=== PATIENT | male | born 1965 | race Caucasian/White ===

== ENCOUNTER 2018-12-26 14:21 | Inpatient (IN) | payer MEDICAID ==
[~2018-12-26] VITALS: Ht 188 cm; Wt 123.8 kg
[2018-12-26] MEDS ORDERED: Isovue-300 100ml vial INJ PRN (14:45)
[2018-12-26 14:46] LABS: BASOPHILS % (AUTO) 0.8 % (0.0-2.0); EOSINOPHILS % (AUTO) 1.7 % (0.0-3.0); HEMATOCRIT 36.4 % (42.0-52.0); HEMOGLOBIN 12.7 G/DL (14.2-18.0); LYMPHOCYTES % (AUTO) 22.5 % (20.0-45.0); MEAN CORPUSCULAR VOLUME 93 FL (80-99); MONOCYTES % (AUTO) 8.9 % (1.0-10.0); NEUTROPHILS % (AUTO) 66.1 % (45.0-75.0); PLATELET COUNT 122 K/UL (150-450); RED BLOOD COUNT 3.92 M/UL (4.70-6.10); RED CELL DISTRIBUTION WIDTH 12.2 % (11.6-14.8); WHITE BLOOD COUNT 7.4 K/UL (4.8-10.8)
[2018-12-26 15:01] LABS: ANION GAP 11 mmol/L (5-15); BLOOD UREA NITROGEN 8 mg/dL (7-18); CARBON DIOXIDE 22 MMOL/L (21-32); CHLORIDE 96 MMOL/L (98-107); CREATININE 0.7 MG/DL (0.55-1.30); POTASSIUM 4.8 MMOL/L (3.5-5.1); SODIUM 128 MMOL/L (136-145)
[2018-12-26 15:03] LABS: INR 0.9 (0.9-1.1)
[2018-12-26 15:07] LABS: ALANINE AMINOTRANSFERASE 124 U/L (12-78); ALBUMIN 3.7 G/DL (3.4-5.0); ALBUMIN/GLOBULIN RATIO 1.2 (1.0-2.7); ALKALINE PHOSPHATASE 72 U/L (46-116); ASPARTATE AMINO TRANSFERASE 98 U/L (15-37); BILIRUBIN,TOTAL 0.8 MG/DL (0.2-1.0)
[2018-12-26 15:17] VITALS: BP 119/69
[2018-12-26 15:46] LABS: APPEARANCE,URINE CLEAR; BILIRUBIN, URINE NEGATIVE (NEGATIVE); COLOR,URINE PALE YELLOW; GLUCOSE, URINE (UA) NEGATIVE (NEGATIVE); KETONES,URINE NEGATIVE (NEGATIVE); LEUKOCYTE ESTERASE ,URINE NEGATIVE (NEGATIVE); NITRITE,URINE NEGATIVE (NEGATIVE); PH,URINE 6 (4.5-8.0); PROTEIN,URINE NEGATIVE (NEGATIVE); UROBILINOGEN,URINE NORMAL MG/DL (0.0-1.0)
[2018-12-26] MEDS ORDERED: PLAVIX75 MG ORAL (15:58)
[2018-12-26] MEDS ORDERED: ROXICODONE15 MG ORAL (15:58)
[2018-12-26] MEDS ORDERED: LISINOPRIL5 MG ORAL (15:58)
[2018-12-26] MEDS ORDERED: GABAPENTIN100 MG ORAL (15:58)
--- NOTE | 2018-12-26 16:07 | Emergency Room Report ---
History of Present Illness General Chief Complaint: Chest Pain Source: EMS Present Illness HPI 53-year-old male presents ED for evaluation. Br[place] in by EMS from [place] complaining of chest pain. Upon arrival patient is lethargic and not answering questions. Unable to provide any additional history at this time. No reported distress upon arrival. Patient has bruising to abdomen. No reported fevers chills. No other aggravating relieving factors. No other associated symptoms Allergies: Coded Allergies: No Known Allergies (Unverified , 12/26/18) Patient History Past Medical History: DM, HTN, CVA/TIA Past Surgical History: none Pertinent Family History: none Social History: Denies: smoking, alcohol use, drug use Immunizations: UTD Reviewed Nursing Documentation: PMH: Agreed; PSxH: Agreed Nursing Documentation-PMH Hx Hypertension: Yes Hx Diabetes: Yes Hx Cerebrovascular Accident: Yes Review of Systems All Other Systems: negative except mentioned in HPI Physical Exam Vital Signs Date Time Temp Pulse Resp B/P (MAP) Pulse Ox O2 Delivery O2 Flow Rate FiO2 12/26/18 14:15 98.1 89 16 117/70 (86) 96 Room Air 12/26/18 15:17 3.0 Sp02 EP Interpretation: reviewed, normal General Appearance: no apparent distress, GCS 15, non-toxic, lethargic Head: normocephalic Eyes: bilateral eye normal inspection, bilateral eye PERRL ENT: normal ENT inspection Neck: normal inspection Respiratory: chest non-tender, lungs clear, normal breath sounds, speaking full sentences Cardiovascular #1: regular rate, rhythm, no edema Gastrointestinal: normal bowel sounds, non tender, soft, non-distended, no guarding, no rebound, other - bruising to abdomen Rectal: deferred Genitourinary: no CVA tenderness Musculoskeletal: normal inspection, swelling - swelling bialteral lower extremities, tender - ulceration/induration R foot, bilateral LEs Neurologic: other - lethargic Psychiatric: other - lethargic Skin: other - see nursing notes for skin Lymphatic: normal inspection Medical Decision Making Diagnostic Impression: Primary Impression: Alcohol intoxication Qualified Codes: F10.929 - Alcohol use, unspecified with intoxication, unspecified Additional Impressions: Substance abuse Cellulitis of foot ER Course Hospital Course 53-year-old male presents ED with altered mental status, swelling to bilateral lower extremities Differential diagnoses include: Cellulitis, DVT, abscess, rash. Clinical course Patient placed on stretcher. After initial history and physical I ordered labs , UA, IVFs, doppler US of LLE labs reviewed - no leukocytosis, Hb/Hct stable, no electrolyte abnormalities, ETOH elevated, UTox + THC +BZs Doppler US - no evidence of DVT Chest x-rayno acute process CT abdomen/pelvis no acute process Foot x-ray no signs of osteomyelitis Is now more alert oriented. Denies any chest pain on arrival antibiotics given. Case discussed with Dr Ashford and he agreed to accept the patient to his service for further care and support Diagnosis - alcohol intoixacation, substance abuse, cellulitis of foot Patient admitted to floor in serious condition Labs Test 12/26/18 14:30 12/26/18 14:45 12/26/18 15:25 White Blood Count 7.4 K/UL (4.8-10.8) Red Blood Count 3.92 M/UL (4.70-6.10) Hemoglobin 12.7 G/DL (14.2-18.0) Hematocrit 36.4 % (42.0-52.0) Mean Corpuscular Volume 93 FL (80-99) Mean Corpuscular Hemoglobin 32.5 PG (27.0-31.0) Mean Corpuscular Hemoglobin Concent 35.0 G/DL (32.0-36.0) Red Cell Distribution Width 12.2 % (11.6-14.8) Platelet Count 122 K/UL (150-450) Mean Platelet Volume 6.9 FL (6.5-10.1) Neutrophils (%) (Auto) 66.1 % (45.0-75.0) Lymphocytes (%) (Auto) 22.5 % (20.0-45.0) Monocytes (%) (Auto) 8.9 % (1.0-10.0) Eosinophils (%) (Auto) 1.7 % (0.0-3.0) Basophils (%) (Auto) 0.8 % (0.0-2.0) Prothrombin Time 10.0 SEC (9.30-11.50) Prothromb Time International Ratio 0.9 (0.9-1.1) Activated Partial Thromboplast Time 30 SEC (23-33) Sodium Level 128 MMOL/L (136-145) Potassium Level 4.8 MMOL/L (3.5-5.1) Chloride Level 96 MMOL/L (98-107) Carbon Dioxide Level 22 MMOL/L (21-32) Anion Gap 11 mmol/L (5-15) Blood Urea Nitrogen 8 mg/dL (7-18) Creatinine 0.7 MG/DL (0.55-1.30) Estimat Glomerular Filtration Rate > 60 mL/min (>60) Glucose Level 188 MG/DL (74-106) Calcium Level 8.0 MG/DL (8.5-10.1) Total Bilirubin 0.8 MG/DL (0.2-1.0) Aspartate Amino Transf (AST/SGOT) 98 U/L (15-37) Alanine Aminotransferase (ALT/SGPT) 124 U/L (12-78) Alkaline Phosphatase 72 U/L (46-116) Troponin I 0.008 ng/mL (0.000-0.056) Total Protein 6.7 G/DL (6.4-8.2) Albumin 3.7 G/DL (3.4-5.0) Globulin 3.0 g/dL Albumin/Globulin Ratio 1.2 (1.0-2.7) Lipase 118 U/L (73-393) Serum Alcohol 269 mg/dL Lactic Acid Level 1.80 mmol/L (0.4-2.0) Urine Color Pale yellow Urine Appearance Clear Urine pH 6 (4.5-8.0) Urine Specific [place] 1.010 (1.005-1.035) Urine Protein Negative (NEGATIVE) Urine Glucose (UA) Negative (NEGATIVE) Urine Ketones Negative (NEGATIVE) Urine Blood Negative (NEGATIVE) Urine Nitrite Negative (NEGATIVE) Urine Bilirubin Negative (NEGATIVE) Urine Urobilinogen Normal MG/DL (0.0-1.0) Urine Leukocyte Esterase Negative (NEGATIVE) Urine Opiates Screen Negative (NEGATIVE) Urine Barbiturates Screen Negative (NEGATIVE) Phencyclidine (PCP) Screen Negative (NEGATIVE) Urine Amphetamines Screen Negative (NEGATIVE) Urine Benzodiazepines Screen Positive (NEGATIVE) Urine Cocaine Screen Negative (NEGATIVE) Urine Marijuana (THC) Screen Positive (NEGATIVE) EKG Diagnostic Results Rate: normal Rhythm: NSR ST Segments: no acute changes ASA given to the pt in ED: No - given by ems Rhythm Strip Diag. Results EP Interpretation: yes Rhythm: NSR, no PVC's, no ectopy Chest X-Ray Diagnostic Results Chest X-Ray Diagnostic Results : Chest X-Ray Ordered: Yes # of Views/Limited/Complete: 1 View Indication: Chest Pain EP Interpretation: Yes Interpretation: no consolidation, no effusion, no pneumothorax, no acute cardiopulmonary disease Impression: No acute disease Other X-Ray Diagnostic Results Other X-Ray Diagnostic Results : X-Ray ordered: R foot # of Views/Limited Vs Complete: 3 View Indication: Swelling EP Interpretation: Yes Interpretation: no dislocation, no fractures, other - +soft tissue swelling. no evidence of osteomyelitis Impression: No acute disease Electronically Signed by: Electronically signed by Giacomo Garcias MD I do not CT/MRI/US Diagnostic Results CT/MRI/US Diagnostic Results #1: Imaging Test Ordered: CT A/P Impression no acute process CT/MRI/US Diagnostic Results #2: Imaging Test Ordered: Venous Duplex Impression no evidence of DVT Last Vital Signs Date Time Temp Pulse Resp B/P (MAP) Pulse Ox O2 Delivery O2 Flow Rate FiO2 12/26/18 15:17 89 16 Nasal Cannula 3.0 12/26/18 15:17 98.1 119/69 96 Status: improved Disposition: ADMITTED INPATIENT Condition: Serious Giacomo Garcias MD Dec 26, 2018 16:07
[2018-12-26] MEDS ORDERED: Piperacillin/Tazobactam 3.375 GM in NS 110 ML IVPB ONE (17:15)
--- NOTE | 2018-12-26 17:29 | Diagnostic Imaging Report ---
EXAM: CT Abdomen and Pelvis With Intravenous Contrast CLINICAL HISTORY: ABD PAIN TECHNIQUE: Axial computed tomography images of the abdomen and pelvis with intravenous contrast. CTDI is 20 mGy and DLP is 1333 mGy-cm. One or more of the following dose reduction techniques were used: automated exposure control, adjustment of the mA and/or kV according to patient size, use of iterative reconstruction technique. Coronal and sagittal reformatted images were created and reviewed. COMPARISON: No relevant prior studies available. FINDINGS: Lung bases: Old granulomatous disease in lungs. ABDOMEN: Liver: Hepatic steatosis and mild left hepatic lobe prominence. Portal vein 2.1 cm. Gallbladder and bile ducts: Contracted gallbladder, likely postprandial. No calcified stones. No ductal dilation. Pancreas: Unremarkable. No mass. No ductal dilation. Spleen: Splenomegaly 17.6 cm AP dimension. Adrenals: Unremarkable. No mass. Kidneys and ureters: Unremarkable kidneys. 1.9 cm left benign renal cyst. No hydronephrosis. Stomach and bowel: Unremarkable. No obstruction. No mucosal thickening. PELVIS: Appendix: No findings to suggest acute appendicitis. Bladder: Unremarkable. No mass. Reproductive: Unremarkable as visualized. ABDOMEN and PELVIS: Intraperitoneal space: Unremarkable. No free air. No significant fluid collection. Bones/joints: Normal multilevel age-related degenerative spine findings. No acute fracture. No dislocation. Soft tissues: Mild gynecomastia. Right inguinal surgical clips of uncertain etiology, correlate clinically. Anterior abdominal wall scattered areas of mild skin thickening and subcutaneous mild induration more pronounced on the right, this could represent medication injection sites. Correlate clinically. Vasculature: Bilateral left greater than right proximal thigh and inguinal varices, which could suggest some component of distal nonvisualized venous obstruction in the lower extremities. Splenorenal shunt. Lymph nodes: Large colonic stool burden. Otherwise unremarkable bowels. No mesenteric adenopathy. Other findings: ASVD. IMPRESSION: 1. No clear acute abnormality to account for patient presentation. 2. Large colonic stool burden, which could be incidental or could represent a cause for abdominal pain. 3. Hepatic findings as chronic liver disease with portal vein enlargement and splenomegaly as well as splenorenal shunt, these likely represent chronic liver disease or fibrosis, correlate clinically. 4. Partially imaged gynecomastia, this could be secondary to chronic liver disease or numerous other etiologies; correlate clinically. 5. Additional chronic benign findings above.
[2018-12-26 17:54] VITALS: BP 122/81
--- NOTE | 2018-12-26 18:12 | Diagnostic Imaging Report ---
EXAM: XR Right Foot Complete, 3 or More Views CLINICAL HISTORY: PAIN TECHNIQUE: Frontal, lateral and oblique views of the right foot. COMPARISON: No relevant prior studies available. FINDINGS: Bones/joints: Multifocal MTP osteoarthritis. Plantar calcaneal enthesophyte. Os naviculare, likely incidental ossicle. No acute fracture. No dislocation. Soft tissues: Forefoot soft tissue edema. Fat stranding in the posterior leg and fat stranding in Kager's fat pad (pre-Achilles region) of uncertain significance. In the proper context, this could be a finding of Achilles tendon injury or disruption. IMPRESSION: 1. No acute osseous abnormality definitively seen. 2. Forefoot soft tissue edema. 3. Fat stranding in the posterior leg and fat stranding in Kager's fat pad (pre-Achilles region) of uncertain significance. In the proper context, this could be a finding of Achilles tendon injury or disruption. 4. Multifocal MTP osteoarthritis. Plantar calcaneal enthesophyte. Os naviculare, likely incidental ossicle.
--- NOTE | 2018-12-26 18:15 | Diagnostic Imaging Report ---
EXAM: XR Chest, 1 View CLINICAL HISTORY: CP TECHNIQUE: Frontal view of the chest. COMPARISON: No relevant prior studies available. FINDINGS: Lungs: Patchy mild bilateral lower lung opacities could be secondary low lung volumes, or could represent multifocal pneumonia or noncardiogenic pulmonary edema. Low lung volumes with bronchovascular crowding. Pleural space: Unremarkable. No pneumothorax. Heart: Unremarkable. No cardiomegaly. Mediastinum: Unremarkable. Bones/joints: Unremarkable. IMPRESSION: 1. Patchy mild bilateral lower lung opacities could be secondary low lung volumes, or could represent multifocal pneumonia or noncardiogenic pulmonary edema. 2. Low lung volumes with bronchovascular crowding. 3. Recommend PA and lateral chest radiographs to further characterize these findings.
--- NOTE | 2018-12-26 19:10 | Diagnostic Imaging Report ---
EXAM: US Duplex Bilateral Lower Extremity Veins CLINICAL HISTORY: PAIN TECHNIQUE: Real-time duplex ultrasound scan of the bilateral lower extremity veins integrating B-mode two-dimensional vascular structure, Doppler spectral analysis, color flow Doppler imaging and compression. COMPARISON: No relevant prior studies available. FINDINGS: Right deep veins: Unremarkable. No DVT in the right common femoral, femoral, proximal deep femoral or popliteal veins. The veins demonstrate normal color flow, are normally compressible, with normal phasic flow and/or augmentation response. Right superficial veins: Unremarkable. No thrombus in the visualized right great saphenous vein. Left deep veins: Unremarkable. No DVT in the left common femoral, femoral, proximal deep femoral or popliteal veins. The veins demonstrate normal color flow, are normally compressible, with normal phasic flow and/or augmentation response. Left superficial veins: Unremarkable. No thrombus in the visualized left great saphenous vein. Soft tissues: No acute findings. No popliteal cyst. IMPRESSION: No DVT.
[2018-12-26 20:45] VITALS: BP 113/78
[2018-12-26] MEDS ORDERED: KADIAN20 M1 PO (20:45)
[2018-12-26] MEDS ORDERED: AMBIEN5 MG ORAL (20:45)
[2018-12-26] MEDS ORDERED: DIAZEPAM10 MG ORAL (21:26)
--- NOTE | 2018-12-26 23:25 | Diagnostic Imaging Report ---
EXAM: CT Head Without Intravenous Contrast CLINICAL HISTORY: FALL TECHNIQUE: Axial computed tomography images of the head/brain without intravenous contrast. CTDI is 70 mGy and DLP is 1446 mGy-cm. One or more of the following dose reduction techniques were used: automated exposure control, adjustment of the mA and/or kV according to patient size, use of iterative reconstruction technique. COMPARISON: No relevant prior studies available. FINDINGS: Brain: Unremarkable. No hemorrhage. No significant white matter disease. No edema. Ventricles: Unremarkable. No ventriculomegaly. Bones/joints: Unremarkable. No acute fracture. Soft tissues: Unremarkable. Sinuses: Unremarkable as visualized. No acute sinusitis. Mastoid air cells: Unremarkable as visualized. No mastoid effusion. IMPRESSION: 1. No acute traumatic injury. 2. Unremarkable study.
[2018-12-27] VITALS: BP 136/70
[2018-12-27] MEDS: MS Contin 15mg tab ORAL SCH ×3 (00:23→20:24)
[2018-12-27] MEDS: Vancomycin 1.5gm Premix IVPB SCH ×3 (00:25→23:30)
[2018-12-27] MEDS: Cefepime HCl 1 GM in D5W 55 ML IVPB SCH ×2 (02:12→14:35)
--- NOTE | 2018-12-27 02:15 | History and Physical Report ---
DATE OF ADMISSION: 12/26/2018 REASON FOR ADMISSION: Cellulitis. HISTORY OF PRESENT ILLNESS: This 53-year-old male with reported complex medical history presented to the emergency room complaining of chest pain, although he denies that at this time and states he came because of leg rash, swelling, and hitting his head. He was at the [employer]. Again today, he apparently was hot after leaving the stadium and fell out hitting his head. He does not know whether he lost consciousness. He did not give this history to the emergency room staff. The patient was hospitalized about a week ago and has bruising on his abdomen due to subcutaneous heparin injections. He had chest pain at that time at [facility] and ultimately had a cardiac catheterization, which revealed no blockages and patency of his old stent. The patient has had vein stripping and states that his legs are chronically swollen and painful. The redness started 2 days ago. He also had some one stepped on his right foot and injured his toe with an open wound. PAST MEDICAL HISTORY: Type 2 diabetes mellitus, hypertension, coronary artery disease with history of stent, cerebrovascular disease with history of CVA, and peripheral neuropathy. ALLERGIES: None. FAMILY HISTORY: Noncontributory. SOCIAL HISTORY: Denies smoking, alcohol, or substance abuse. MEDICATIONS: Reviewed and reconciled. REVIEW OF SYSTEMS: All systems negative other than noted above. PHYSICAL EXAMINATION: GENERAL: Moderately obese. No distress. VITAL SIGNS: Blood pressure 117/70, pulse 89, respiratory rate 16, and afebrile. SKIN: Notable for under skin folds of his groin and erythema over his right leg predominantly around the knee and thigh as well as some over the lower abdomen. There is bruising over his umbilical region at the site of prior heparin injection. There is also some patchy erythema on the back of his neck. There is no open wound over the scalp. The right foot, however, proximal to the first toe does have an open wound with some clear drainage. HEENT: Conjunctivae are pink. Oropharynx clear. NECK: Supple. LUNGS: Clear. CARDIAC: Regular. Normal S1 and S2. ABDOMEN: Soft. EXTREMITIES: Trace dependent edema and varicose veins are noted. LABORATORY DATA: White count 7.4 and hemoglobin 12.7. Sodium 128, potassium 4.8, bicarb 22, BUN 8, creatinine 0.7, and glucose 188. Lactic acid 1.8. AST and ALT 98/124. Troponin negative. Albumin 3.7. X-rays are reviewed. Venous duplex negative for DVT. IMPRESSION: 1. Cellulitis foot wound. 2. Type 2 diabetes mellitus. 3. History of coronary artery disease. 4. Blunt head trauma. 5. Hepatic steatosis likely etiology for transaminitis. 6. History of cerebrovascular accident. 7, Hyponatremia and hypovolemia PLAN: 1. Skin care. 2. IV antimicrobials. 3. Topical antifungal . 4. CT of the head to rule out bleed. 5. Insulin coverage by sliding scale. 6. Check hemoglobin A1c. 7. Continue anti-platelet therapy if no bleeding noted on CAT scan. 8. Symptom-guided pain control. 9. DVT prophylaxis. 10. Check lipid panel. 11. Saline hydration by IV route. Benoit Ashford M.D. DR: RANGEL JOB#: [id number] CC: GALEN
[2018-12-27 04:00] VITALS: BP 110/62
[2018-12-27 06:09] LABS: HEMATOCRIT 35.8 % (42.0-52.0); HEMOGLOBIN 12.3 G/DL (14.2-18.0); MEAN CORPUSCULAR VOLUME 94 FL (80-99); PLATELET COUNT 102 K/UL (150-450); RED CELL DISTRIBUTION WIDTH 12.6 % (11.6-14.8); WHITE BLOOD COUNT 3.4 K/UL (4.8-10.8)
[2018-12-27] MEDS ORDERED: NovoLOG Insulin Flexpen SUBQ SCH (06:30)
[2018-12-27 06:42] LABS: ALANINE AMINOTRANSFERASE 100 U/L (12-78); ALBUMIN 3.1 G/DL (3.4-5.0); ALBUMIN/GLOBULIN RATIO 0.9 (1.0-2.7); ALKALINE PHOSPHATASE 69 U/L (46-116); ANION GAP 5 mmol/L (5-15); ASPARTATE AMINO TRANSFERASE 73 U/L (15-37); BILIRUBIN,TOTAL 0.8 MG/DL (0.2-1.0); BLOOD UREA NITROGEN 11 mg/dL (7-18); CALCIUM 8.5 MG/DL (8.5-10.1); CARBON DIOXIDE 28 MMOL/L (21-32); CHLORIDE 106 MMOL/L (98-107); CREATININE 0.8 MG/DL (0.55-1.30); POTASSIUM 4.6 MMOL/L (3.5-5.1); SODIUM 139 MMOL/L (136-145)
[2018-12-27] MEDS: NovoLOG Insulin Flexpen SUBQ SCH ×4 (06:48→20:30)
[2018-12-27 08:00] VITALS: BP 129/73
[2018-12-27] MEDS: Aspirin EC 81mg tab ORAL SCH (08:44)
[2018-12-27] MEDS: Nystatin Powder 100,000 units/gm 15gm TOPIC SCH ×2 (09:59→18:27)
[2018-12-27] MEDS: Heparin 5000 units/ml inj SUBQ SCH ×2 (10:01→20:29)
[2018-12-27 12:00] VITALS: BP 115/83
--- NOTE | 2018-12-27 14:00 | Consultation ---
History of Present Illness General Date patient seen: Dec 27, 2018 Reason for Hospitalization: Chest Pain Present Illness HPI This is a 53-year-old male that presented to [facility] complaining of chest pain, lower extremity pain, lower extremity edema, lower extremity wounds. Patient states that he developed a cut on his right leg 3 days ago when he was playing football with a local [employer] team. States that he developed the injury and try to take care of it but has since developed more edema. States that for many years now has had lower extremity edema and venous disease. He states that he is been recommended to have compression stockings as potentially surgery as well but has not done so yet. On admission surgery called to evaluate and assist with care. Patient seen, patient evaluate, chart reviewed. Patient is very pleasant and compliant with examination. I do sense some inconsistencies in his historic account of events. Allergies: Coded Allergies: No Known Allergies (Unverified , 12/26/18) Medication History Scheduled Clopidogrel Bisulfate* (Plavix*), 75 MG ORAL DAILY, (Reported) Diazepam* (Diazepam*), 10 MG ORAL BEDTIME, (Reported) Gabapentin* (Gabapentin*), Unknown Dose ORAL THREE TIMES A DAY, (Reported) Lisinopril (Lisinopril*), Unknown Dose ORAL DAILY, (Reported) Morphine Sulfate (Becki), 10 MG PO BID, (Reported) Scheduled PRN OXYCODONE HCl* (Roxicodone*), Unknown Dose ORAL Q6H PRN for For Pain, (Reported) Zolpidem Tartrate* (Ambien*), 5 MG ORAL BEDTIME PRN for Insomnia, (Reported) Patient History History Provided By: Patient, Medical Record, PMD Healthcare decision maker Resuscitation status Full Code Advanced Directive on File Past Medical/Surgical History Past Medical/Surgical History: (1) Chest pain (2) Alcohol intoxication (3) Substance abuse (4) Cellulitis of foot Review of Systems Review of Symptoms General ROS: no weight loss or fever Psychological ROS: no depression or mood changes, no memory loss Ophthalmic ROS: no visual changes or eye irritation ENT ROS: no nasal congestion, hearing loss, dizziness Allergy and Immunology ROS: no allergic symptoms or urticaria Hematological and Lymphatic ROS: no swollen glands, unusual bleeding or bruising Endocrine ROS: no polyuria, polydipsia, weight changes, temperature intolerance Respiratory ROS: no cough, shortness of breath, or wheezing Cardiovascular ROS: no chest pain or dyspnea on exertion Gastrointestinal ROS: denies abdominal pain, no bright red blood in stool. Musculoskeletal ROS: no myalgias or arthralgias Neurological ROS: no TIA or stroke symptoms Dermatological ROS: no new or changing skin lesions, rashes or pruritis Physical Exam Physical Exam General appearance: alert, cooperative, no distress, appears stated age Head: Normocephalic, without obvious abnormality, atraumatic Eyes: conjunctivae/corneas clear. PERRL, EOM's intact. Fundi benign Throat: Lips, mucosa, and tongue normal. Teeth and gums normal Neck: supple, symmetrical, trachea midline, no adenopathy, thyroid: not enlarged, symmetric, no tenderness/mass/nodules, no carotid bruit and no JVD Lungs: clear to auscultation bilaterally Heart: regular rate and rhythm, S1, S2 normal, no murmur, click, rub or gallop Abdomen: soft, non-tender. Bowel sounds normal. No masses, no organomegaly Extremities: edema Pulses: 2+ and symmetric Skin: Skin color, texture, turgor normal. No rashes or lesions Neurologic: Grossly normal Last 24 Hour Vital Signs Date Time Temp Pulse Resp B/P (MAP) Pulse Ox O2 Delivery O2 Flow Rate FiO2 12/27/18 12:00 98.1 81 18 115/83 (94) 98 12/27/18 09:00 Room Air 12/27/18 08:00 98.2 81 18 129/73 (91) 95 12/27/18 04:00 98.2 78 19 110/62 (78) 97 12/27/18 00:00 98.2 88 18 136/70 (92) 96 12/26/18 21:33 Room Air 12/26/18 20:45 97.7 78 18 113/78 (90) 97 12/26/18 19:35 98.2 88 18 122/81 94 Room Air 3.0 12/26/18 17:54 98.2 88 18 122/81 94 Room Air 12/26/18 15:17 89 16 Nasal Cannula 3.0 12/26/18 15:17 98.1 88 16 119/69 96 Nasal Cannula 3.0 12/26/18 14:15 98.1 89 16 117/70 (86) 96 Room Air Intake and Output 12/26/18 12/27/18 18:59 06:59 Intake Total 1080.0 ml Output Total 200 ml 1200 ml Balance -200 ml -120.0 ml IV Total 1080.0 ml Output Urine Total 200 ml 1200 ml Laboratory Tests Test 12/26/18 14:30 12/26/18 14:45 12/26/18 15:25 12/27/18 04:50 White Blood Count 7.4 K/UL (4.8-10.8) 3.4 K/UL (4.8-10.8) #L Red Blood Count 3.92 M/UL (4.70-6.10) L 3.80 M/UL (4.70-6.10) L Hemoglobin 12.7 G/DL (14.2-18.0) L 12.3 G/DL (14.2-18.0) L Hematocrit 36.4 % (42.0-52.0) L 35.8 % (42.0-52.0) L Mean Corpuscular Volume 93 FL (80-99) 94 FL (80-99) Mean Corpuscular Hemoglobin 32.5 PG (27.0-31.0) H 32.2 PG (27.0-31.0) H Mean Corpuscular Hemoglobin Concent 35.0 G/DL (32.0-36.0) 34.2 G/DL (32.0-36.0) Red Cell Distribution Width 12.2 % (11.6-14.8) 12.6 % (11.6-14.8) Platelet Count 122 K/UL (150-450) L 102 K/UL (150-450) L Mean Platelet Volume 6.9 FL (6.5-10.1) 6.7 FL (6.5-10.1) Neutrophils (%) (Auto) 66.1 % (45.0-75.0) % (45.0-75.0) Lymphocytes (%) (Auto) 22.5 % (20.0-45.0) % (20.0-45.0) Monocytes (%) (Auto) 8.9 % (1.0-10.0) % (1.0-10.0) Eosinophils (%) (Auto) 1.7 % (0.0-3.0) % (0.0-3.0) Basophils (%) (Auto) 0.8 % (0.0-2.0) % (0.0-2.0) Prothrombin Time 10.0 SEC (9.30-11.50) Prothromb Time International Ratio 0.9 (0.9-1.1) Activated Partial Thromboplast Time 30 SEC (23-33) Sodium Level 128 MMOL/L (136-145) L 139 MMOL/L (136-145) # Potassium Level 4.8 MMOL/L (3.5-5.1) 4.6 MMOL/L (3.5-5.1) Chloride Level 96 MMOL/L (98-107) L 106 MMOL/L (98-107) Carbon Dioxide Level 22 MMOL/L (21-32) 28 MMOL/L (21-32) Anion Gap 11 mmol/L (5-15) 5 mmol/L (5-15) Blood Urea Nitrogen 8 mg/dL (7-18) 11 mg/dL (7-18) Creatinine 0.7 MG/DL (0.55-1.30) 0.8 MG/DL (0.55-1.30) Estimat Glomerular Filtration Rate > 60 mL/min (>60) > 60 mL/min (>60) Glucose Level 188 MG/DL (74-106) H 125 MG/DL (74-106) H Calcium Level 8.0 MG/DL (8.5-10.1) L 8.5 MG/DL (8.5-10.1) Total Bilirubin 0.8 MG/DL (0.2-1.0) 0.8 MG/DL (0.2-1.0) Aspartate Amino Transf (AST/SGOT) 98 U/L (15-37) H 73 U/L (15-37) H Alanine Aminotransferase (ALT/SGPT) 124 U/L (12-78) H 100 U/L (12-78) H Alkaline Phosphatase 72 U/L (46-116) 69 U/L (46-116) Troponin I 0.008 ng/mL (0.000-0.056) Total Protein 6.7 G/DL (6.4-8.2) 6.4 G/DL (6.4-8.2) Albumin 3.7 G/DL (3.4-5.0) 3.1 G/DL (3.4-5.0) L Globulin 3.0 g/dL 3.3 g/dL Albumin/Globulin Ratio 1.2 (1.0-2.7) 0.9 (1.0-2.7) L Lipase 118 U/L (73-393) Serum Alcohol 269 mg/dL Lactic Acid Level 1.80 mmol/L (0.4-2.0) Urine Color Pale yellow Urine Appearance Clear Urine pH 6 (4.5-8.0) Urine Specific [place] 1.010 (1.005-1.035) Urine Protein Negative (NEGATIVE) Urine Glucose (UA) Negative (NEGATIVE) Urine Ketones Negative (NEGATIVE) Urine Blood Negative (NEGATIVE) Urine Nitrite Negative (NEGATIVE) Urine Bilirubin Negative (NEGATIVE) Urine Urobilinogen Normal MG/DL (0.0-1.0) Urine Leukocyte Esterase Negative (NEGATIVE) Urine Opiates Screen Negative (NEGATIVE) Urine Barbiturates Screen Negative (NEGATIVE) Phencyclidine (PCP) Screen Negative (NEGATIVE) Urine Amphetamines Screen Negative (NEGATIVE) Urine Benzodiazepines Screen Positive (NEGATIVE) H Urine Cocaine Screen Negative (NEGATIVE) Urine Marijuana (THC) Screen Positive (NEGATIVE) H Differential Total Cells Counted 100 Neutrophils % (Manual) 55 % (45-75) Lymphocytes % (Manual) 26 % (20-45) Monocytes % (Manual) 16 % (1-10) H Eosinophils % (Manual) 2 % (0-3) Basophils % (Manual) 1 % (0-2) Band Neutrophils 0 % (0-8) Platelet Estimate Decreased L Platelet Morphology Normal Red Blood Cell Morphology Normal Hemoglobin A1c 5.8 % (4.3-6.0) Thyroid Stimulating Hormone (TSH) 1.695 uiU/mL (0.358-3.740) Microbiology Date/Time Source Procedure Growth Status 12/26/18 14:50 Foot Right Gram Stain - Final Resulted 12/26/18 14:50 Wound Culture - Preliminary Staphylococcus Aureus Resulted Height (Feet): 6 Height (Inches): 2.00 Weight (Pounds): 261 Medications Current Medications Medications (Trade) Dose Ordered Sig/Nuzhat Route PRN Reason Start Time Stop Time Status Last Admin Dose Admin Aspirin (Ecotrin) 81 mg DAILY ORAL 12/27/18 09:00 01/26/19 08:59 12/27/18 08:44 Cefepime HCl 1 gm/ Dextrose 55 ml @ 110 mls/hr Q12H IVPB 12/27/18 02:00 01/03/19 01:59 12/27/18 02:12 Clopidogrel Bisulfate (Plavix) 75 mg DAILY ORAL 12/27/18 09:00 01/26/19 08:59 12/27/18 08:45 Dextrose (Dextrose 50%) 25 ml Q30M PRN IV Hypoglycemia 12/26/18 23:00 01/25/19 22:59 Dextrose (Dextrose 50%) 50 ml Q30M PRN IV Hypoglycemia 12/26/18 23:00 01/25/19 22:59 Diazepam (Valium) 5 mg HSPRN PRN ORAL Insomnia 12/26/18 23:00 01/02/19 22:59 12/27/18 02:17 Gabapentin (Neurontin) 100 mg THREE TIMES A DAY ORAL 12/26/18 23:00 01/25/19 22:59 12/27/18 13:02 Heparin Sodium (Porcine) (Heparin 5000 units/ml) 5,000 units EVERY 12 HOURS SUBQ 12/27/18 10:00 01/26/19 09:59 12/27/18 10:01 Insulin Aspart (NovoLOG) BEFORE MEALS AND HS SUBQ 12/27/18 06:30 01/26/19 06:29 12/27/18 12:21 Iopamidol (Isovue-300 100ml) 100 ml NOW PRN INJ Radiology Procedure 12/26/18 14:45 12/28/18 14:44 Morphine Sulfate (MS Contin) 15 mg Q12HR ORAL 12/26/18 23:00 01/02/19 22:59 12/27/18 08:44 Nystatin (Nystop Powder) 1 applic BID TOPIC 12/27/18 09:00 01/26/19 08:59 12/27/18 09:59 Sodium Chloride 1,000 ml @ 125 mls/hr Q8H IV 12/26/18 23:00 01/25/19 22:59 12/27/18 06:39 Vancomycin HCl (Vanco rx to dose) 1 ea DAILY PRN MISC Per rx protocol 12/26/18 23:00 01/25/19 22:59 Vancomycin HCl/ Dextrose 275 ml @ 137.5 mls/ hr Q12H IVPB 12/27/18 00:00 01/01/19 00:00 12/27/18 12:24 Assessment/Plan Problem List: (1) Cellulitis of foot Assessment & Plan: This is a 53-year-old male with significant bilateral lower extremity venous incompetence, venous stasis ulcer, edema. Patient with acute cellulitis of the right lower extremity. Patient states that injury 3 days ago but in evaluating the extremity patient has multiple chronic ulcerations and injuries identified. Patient is aware of his of his venous stasis disease and has not received care thus far. Patient does state that when he lays flat the veins are not engorged in the in the morning after keeping his legs elevated occasionally he will no significant improvement in the edema. Patient states that he has been caring for the wound himself but has been unable to do so and given the pain discomfort along with the chest pain decided come in for evaluation. Currently no acute surgical intervention recommended. Plan for local wound care and antibiotics for cellulitis until improved. Long discussion was had with the patient in regards to his lower extremity venous incompetence and disease process. Patient is recommended to keep lower extremities elevated while in bed. Patient recommended to have venous compression stockings. Patient recommended follow-up as an outpatient for considerations of surgical intervention. For the meantime is for wound care apply Thera honey foam dressing and Kerlix wrap to right lower extremity wounds. We will follow with recognitions. Thank you allowing me to participate in patient's care. ICD Codes: L03.119 - Cellulitis of unspecified part of limb SNOMED: [id number] Cruzito Gary Dec 27, 2018 14:00
[2018-12-27] MEDS ORDERED: Tubing IV Secondary IV ONE (14:01)
[2018-12-27] MEDS ORDERED: NS 500ML ONE (14:01)
[2018-12-27 16:00] VITALS: BP 129/66
--- NOTE | 2018-12-27 19:00 | Consultation ---
DATE OF CONSULTATION: 12/27/2018 INFECTIOUS DISEASES CONSULTATION This consult is for coverage of Dr. Locke. CONSULTING PHYSICIAN: Judd Alvarado M.D. PRIMARY ATTENDING PHYSICIAN: Benoit Ashford M.D. REASON FOR CONSULTATION: Cellulitis of right foot. HISTORY OF PRESENT ILLNESS: The patient is a 53-year-old white male admitted yesterday through the ER. The patient was found in the street with chest pain. At time of admission was lethargic, admitted for alcohol intoxication, has swelling of the legs with erythema, ulcers in the right foot area. PAST MEDICAL HISTORY: Diabetes mellitus, hypertension, history of CVA, history of osteomyelitis in right foot 4 years ago. PAST SURGICAL HISTORY: Procedure for varicose veins of the legs. ALLERGIES: No known drug allergies. MEDICATIONS: Heparin, aspirin, nystatin, Plavix, insulin, cefepime, vancomycin, gabapentin, diazepam, morphine sulfate, sodium chloride. REVIEW OF SYSTEMS: No fever. No chills. Has pain in the right foot. States that he does have tight shoes, ulcers and pain started from three days ago. He recently walked a lot. He usually walks 10 miles a day. Denies any chest pain and shortness of breath. SOCIAL HISTORY: , lives with a friend. Denies alcohol, drug abuse, or smoking. PHYSICAL EXAMINATION: VITAL SIGNS: Temperature 98.1, pulse 81, blood pressure 115/83. GENERAL APPEARANCE: The patient is well developed, no acute distress. HEAD AND NECK: [place] conjunctiva, have dentures. No oral lesion. HEART: S1 and S2 regular. LUNGS: Clear. ABDOMEN: Soft, nontender. EXTREMITIES: Enlarge varicose veins in the both legs and thigh area. Some edema of both legs, more in the right foot area, erythema of right front foot, has ulcer of fourth and fifth toe and big toe in the right side. NEUROLOGIC: Awake, alert, oriented x3. LABORATORY AND DIAGNOSTIC DATA: WBC 3.4, at the time of admission WBC was 7.4, hemoglobin 12.3, hematocrit 35.8, and platelets is 102. Sodium 139, potassium 4.6, chloride 106, bicarbonate 28, BUN 11, creatinine 0.8, glucose 125. Urine toxicology was positive for benzodiazepine, marijuana, alcohol. Wound culture from right foot growing Staph aureus. CT scan of the abdomen and pelvis also show chronic kidney disease, splenomegaly, portal hypertension. IMPRESSION: Cellulitis of right foot. Culture growing Staph aureus. The patient is diabetic, has history of osteomyelitis before, hypertension. Polysubstance abuse including alcohol with alcohol intoxication. RECOMMENDATION: Continue with vancomycin and cefepime. We will follow up the cultures and narrow antibiotics. Order MRI of right foot to rule out osteomyelitis. Order HIV test. At the end of my exam, I thank Dr. Ashford, for involving me in the care of this patient. Judd Alvarado M.D. DR: Augie JOB#: [id number] CC: GALEN
--- NOTE | 2018-12-27 19:45 | Progress Note ---
DATE: 12/27/2018 INTERNAL MEDICINE PROGRESS NOTE SUBJECTIVE: The patient still has foot pain. ID consult appreciated. Preliminary culture is notable for Staph aureus. OBJECTIVE: VITAL SIGNS: Blood pressure 115/83, pulse 81, and respirations 18. Afebrile. LUNGS: Clear. CARDIAC: Regular. ABDOMEN: Soft. EXTREMITIES: 1+ dependent edema. Lesions on the right foot with drainage noted. Erythema unchanged. LABORATORY DATA: White count 3.4, hemoglobin 12.3. Potassium 4.6, BUN 11, creatinine 0.8. Albumin 3.1. CAT scan of the brain revealed no acute process. Venous duplex scan is negative for DVT. X-rays of the foot with soft tissue swelling. IMPRESSION: 1. Cellulitis. 2. Wound right foot. 3. Staphylococcus aureus infection, rule out MRSA. 4. Rule out osteomyelitis. 5. Head trauma with no signs of concussion. 6. Coronary artery disease with stable angina. PLAN: 1. Antibiotics. 2. Skin care. 3. Pain control. 4. MRI of the foot. 5. Await final cultures. Benoit Ashford M.D. DR: JO JOB#: [id number] CC:
[2018-12-27 20:00] VITALS: BP 125/76
[2018-12-28] VITALS: BP 134/79
[2018-12-28] MEDS: Nystatin Powder 100,000 units/gm 15gm TOPIC SCH ×2 (01:38→18:46)
[2018-12-28] MEDS: Cefepime HCl 1 GM in D5W 55 ML IVPB SCH (01:39)
[2018-12-28 04:00] VITALS: BP 100/55
[2018-12-28] MEDS: NovoLOG Insulin Flexpen SUBQ SCH ×4 (06:11→20:32)
[2018-12-28 07:04] LABS: BASOPHILS % (AUTO) 1.2 % (0.0-2.0); EOSINOPHILS % (AUTO) 3.6 % (0.0-3.0); HEMATOCRIT 40.6 % (42.0-52.0); HEMOGLOBIN 13.9 G/DL (14.2-18.0); LYMPHOCYTES % (AUTO) 32.3 % (20.0-45.0); MEAN CORPUSCULAR VOLUME 95 FL (80-99); MONOCYTES % (AUTO) 14.1 % (1.0-10.0); NEUTROPHILS % (AUTO) 48.9 % (45.0-75.0); PLATELET COUNT 134 K/UL (150-450); RED BLOOD COUNT 4.28 M/UL (4.70-6.10); RED CELL DISTRIBUTION WIDTH 12.4 % (11.6-14.8); WHITE BLOOD COUNT 4.6 K/UL (4.8-10.8)
[2018-12-28 08:00] VITALS: BP 129/77
[2018-12-28] MEDS: MS Contin 15mg tab ORAL SCH ×2 (09:03→20:30)
[2018-12-28] MEDS: Aspirin EC 81mg tab ORAL SCH (09:03)
[2018-12-28] MEDS: Heparin 5000 units/ml inj SUBQ SCH ×2 (09:06→20:32)
[2018-12-28 12:00] VITALS: BP 114/60
[2018-12-28] MEDS: Vancomycin 1.5gm Premix IVPB SCH (12:00)
--- NOTE | 2018-12-28 12:53 | Surgery Progress Note ---
Surgery Progress Note Subjective Additional Comments no acute events comfortable stable no complaints Objective Last 24 Hour Vital Signs Date Time Temp Pulse Resp B/P (MAP) Pulse Ox O2 Delivery O2 Flow Rate FiO2 12/28/18 08:45 Room Air 12/28/18 08:00 97.7 69 18 129/77 (94) 98 12/28/18 04:00 97.8 82 19 100/55 (70) 97 12/28/18 00:00 99.6 78 18 134/79 (97) 96 12/27/18 21:00 Room Air 12/27/18 20:00 97.8 77 18 125/76 (92) 99 12/27/18 16:00 98.2 75 18 129/66 (87) 99 I&O Intake and Output 12/27/18 12/28/18 18:59 06:59 Intake Total 570.0 ml 330.0 ml Output Total 300 ml 800 ml Balance 270.0 ml -470.0 ml Intake Oral 240 ml IV Total 330.0 ml 330.0 ml Output Urine Total 300 ml 800 ml # Voids 1 Dressing: dry Wound: clean Cardiovascular: RSR Respiratory: clear Abdomen: soft, non-tender, present bowel sounds Extremities: edema, tenderness, no cyanosis, other Laboratory Tests Test 12/28/18 06:10 12/28/18 11:10 White Blood Count 4.6 K/UL (4.8-10.8) L Red Blood Count 4.28 M/UL (4.70-6.10) L Hemoglobin 13.9 G/DL (14.2-18.0) L Hematocrit 40.6 % (42.0-52.0) L Mean Corpuscular Volume 95 FL (80-99) Mean Corpuscular Hemoglobin 32.5 PG (27.0-31.0) H Mean Corpuscular Hemoglobin Concent 34.2 G/DL (32.0-36.0) Red Cell Distribution Width 12.4 % (11.6-14.8) Platelet Count 134 K/UL (150-450) L Mean Platelet Volume 6.3 FL (6.5-10.1) L Neutrophils (%) (Auto) 48.9 % (45.0-75.0) Lymphocytes (%) (Auto) 32.3 % (20.0-45.0) Monocytes (%) (Auto) 14.1 % (1.0-10.0) H Eosinophils (%) (Auto) 3.6 % (0.0-3.0) H Basophils (%) (Auto) 1.2 % (0.0-2.0) HIV (1&2) Antibody Rapid Negative (NEGATIVE) Vancomycin Level Trough 7.9 ug/mL (5.0-12.0) Plan Problems: (1) Cellulitis of foot Assessment & Plan: This is a 53-year-old male with significant bilateral lower extremity venous incompetence, venous stasis ulcer, edema. Patient with acute cellulitis of the right lower extremity. Patient states that injury 3 days ago but in evaluating the extremity patient has multiple chronic ulcerations and injuries identified. Patient is aware of his of his venous stasis disease and has not received care thus far. Patient does state that when he lays flat the veins are not engorged in the in the morning after keeping his legs elevated occasionally he will no significant improvement in the edema. Patient states that he has been caring for the wound himself but has been unable to do so and given the pain discomfort along with the chest pain decided come in for evaluation. Currently no acute surgical intervention recommended. Plan for local wound care and antibiotics for cellulitis until improved. Long discussion was had with the patient in regards to his lower extremity venous incompetence and disease process. Patient is recommended to keep lower extremities elevated while in bed. Patient recommended to have venous compression stockings. Patient recommended follow-up as an outpatient for considerations of surgical intervention. For the meantime is for wound care apply Betadine to wounds foam dressing and Kerlix wrap to right lower extremity wounds. We will follow with recognitions. Thank you allowing me to participate in patient's care. Cruzito Gary Dec 28, 2018 12:53
[2018-12-28] MEDS: Vancomycin 1.25gm Premix IVPB SCH ×2 (14:49→20:30)
[2018-12-28 16:00] VITALS: BP 141/76
--- NOTE | 2018-12-28 16:39 | Diagnostic Imaging Report ---
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 There is some marrow edema, manifested by decreased T1 and increased STIR signal, within the first metatarsal head. There is subtle slightly increased STIR signal within the first distal phalanx, without definite corresponding T1 signal abnormality. There is slightly increased STIR signal within the fourth proximal, middle, and distal phalanges. No associated T1 signal abnormality demonstrated, however. Increased T1 signal is seen in the head of the fifth proximal phalanx as well as in the middle and distal phalanges. There is questionable decreased T1 signal in the middle phalanx. T1 signal is normal elsewhere in the fifth digit. No other marrow signal abnormality is demonstrated There is edema of the subcutaneous fat predominantly of the dorsum of the foot. There is also some edema of the deep compartmental fat posteriorly. No discrete fluid collections are demonstrated. Impression: Increased STIR and equivocally increased T1 signal within the fifth middle phalanx, could indicate osteomyelitis. Foci of subtle increased STIR signal without corresponding T1 abnormality within the fifth proximal and distal phalanges, the first distal phalanx, and in the fourth proximal, middle, and distal phalanges. Most likely represent reactive marrow changes, but early osteomyelitis is also possible Severe degenerative changes of the first metatarsophalangeal joint. Underlying mild marrow edema of the first metatarsal head is likely related to such Soft tissue edema, as described. Consider clinical history, likely on the basis of cellulitis but can also be vasogenic/hemodynamic in origin. No evidence of drainable abscess
[2018-12-28 20:00] VITALS: BP 116/67
--- NOTE | 2018-12-29 02:30 | Progress Note ---
DATE: 12/28/2018 CARDIOLOGY PROGRESS NOTE SUBJECTIVE: No new complaints. MRI reviewed. Low likelihood for acute ____ cannot be excluded. OBJECTIVE: VITAL SIGNS: Vitals are stable. Afebrile. GENERAL: Wound site is pictured. IMPRESSION: 1. Obesity. 2. Venous insufficiency with varicose vein. 3. Foot ulcer with Staph aureus, sensitivities pending. 4. Cellulitis, improved. 5. Peripheral neuropathy. PLAN: 1. Plan is to await final culture results for sensitivities. 2. Continue intravenous antimicrobials. 3. Wound care. 4. Discontinue intravenous fluids. 5. DVT prophylaxis. 6. We will need to address disposition for this completion of recovery. Benoit Ashford M.D. DR: LUNA JOB#: [id number] CC:
[2018-12-29] MEDS: Vancomycin 1.25gm Premix IVPB SCH ×2 (05:01→12:56)
[2018-12-29] MEDS: NovoLOG Insulin Flexpen SUBQ SCH ×4 (05:06→20:16)
[2018-12-29 08:00] VITALS: BP 137/81
[2018-12-29] MEDS: Aspirin EC 81mg tab ORAL SCH (08:21)
[2018-12-29] MEDS: Nystatin Powder 100,000 units/gm 15gm TOPIC SCH ×2 (08:21→16:56)
[2018-12-29] MEDS: MS Contin 15mg tab ORAL SCH ×2 (08:21→20:12)
[2018-12-29] MEDS: Heparin 5000 units/ml inj SUBQ SCH ×2 (08:24→20:11)
--- NOTE | 2018-12-29 11:28 | Infectious Diseases Prog Note ---
"Assessment/Plan Assessment/Plan antibiotics : vancomycin iv A 1. right foot MRSA cellulitis | osteomyelitis 2. diabetes mellitus 3. hypertension 4. CVA P 1. continue iv vancomycin 38 more days 2. will follow up cultures Subjective Constitutional: Denies: fever, chills Respiratory: Denies: shortness of breath, dry cough Gastrointestinal/Abdominal: Reports: nausea; Denies: vomiting, diarrhea Musculoskeletal: Reports: pain - in right foot Allergies: Coded Allergies: No Known Allergies (Unverified , 12/26/18) Objective Vital Signs Last 24 Hour Vital Signs Date Time Temp Pulse Resp B/P (MAP) Pulse Ox O2 Delivery O2 Flow Rate FiO2 12/29/18 09:00 Room Air 12/29/18 08:51 97.9 12/29/18 08:00 97.9 78 20 137/81 (99) 98 12/28/18 21:00 Room Air 12/28/18 20:00 97.9 82 18 116/67 (83) 98 12/28/18 16:00 97.3 93 18 141/76 (97) 98 12/28/18 12:00 97.9 67 18 114/60 (78) 95 Height (Feet): 6 Height (Inches): 2.00 Weight (Pounds): 261 Respiratory/Chest: lungs clear Cardiovascular: normal rate, regular rhythm, no gallop/murmur Abdomen: soft, non tender Extremities: other - + edema, right 4th and 5th toe ulcer, erythema Microbiology Date/Time Source Procedure Growth Status 12/26/18 14:55 Blood Blood Culture - Preliminary NO GROWTH AFTER 48 HOURS Resulted 12/26/18 14:55 Blood Blood Culture - Preliminary NO GROWTH AFTER 48 HOURS Resulted 12/27/18 02:00 Nose MRSA Culture - Final NO METHICILLIN RESISTANT STAPH AUREUS... Complete 12/27/18 02:00 Rectal Mucosa VRE Culture - Final NO VANCOMYCIN RESISTANT ENTEROCOCCUS ... Complete 12/26/18 14:50 Foot Right Gram Stain - Final Complete 12/26/18 14:50 Wound Culture - Final Staphylococcus Aureus - Mrsa Complete Current Medications Medications (Trade) Dose Ordered Sig/Nuzhat Route PRN Reason Start Time Stop Time Status Last Admin Dose Admin Aspirin (Ecotrin) 81 mg DAILY ORAL 12/27/18 09:00 01/26/19 08:59 12/29/18 08:21 Clopidogrel Bisulfate (Plavix) 75 mg DAILY ORAL 12/27/18 09:00 01/26/19 08:59 12/29/18 08:21 Dextrose (Dextrose 50%) 25 ml Q30M PRN IV Hypoglycemia 12/26/18 23:00 01/25/19 22:59 Dextrose (Dextrose 50%) 50 ml Q30M PRN IV Hypoglycemia 12/26/18 23:00 01/25/19 22:59 Diazepam (Valium) 5 mg HSPRN PRN ORAL Insomnia 12/26/18 23:00 01/02/19 22:59 12/28/18 20:31 Gabapentin (Neurontin) 100 mg THREE TIMES A DAY ORAL 12/26/18 23:00 01/25/19 22:59 12/29/18 08:21 Heparin Sodium (Porcine) (Heparin 5000 units/ml) 5,000 units EVERY 12 HOURS SUBQ 12/27/18 10:00 01/26/19 09:59 12/29/18 08:24 Insulin Aspart (NovoLOG) BEFORE MEALS AND HS SUBQ 12/27/18 06:30 01/26/19 06:29 12/29/18 05:06 Morphine Sulfate (MS Contin) 15 mg Q12HR ORAL 12/26/18 23:00 01/02/19 22:59 12/29/18 08:21 Nystatin (Nystop Powder) 1 applic BID TOPIC 12/27/18 09:00 01/26/19 08:59 12/29/18 08:21 Vancomycin HCl (Vanco rx to dose) 1 ea DAILY PRN MISC Per rx protocol 12/26/18 23:00 01/25/19 22:59 Vancomycin HCl/ Dextrose 275 ml @ 183.333 mls/hr Q8H IVPB 12/28/18 13:00 01/02/19 12:59 12/29/18 05:01 Kendra Locke MD Dec 29, 2018 11:28"
[2018-12-29 12:00] VITALS: BP 137/74
--- NOTE | 2018-12-29 12:25 | Surgery Progress Note ---
Surgery Progress Note Subjective Additional Comments No acute events. Labs stable. Wound culture identified with MRSA. Exam relatively unchanged. Dressings going well. Patient ambulatory. Patient had bowel movements. Patient tolerating diet. Objective Last 24 Hour Vital Signs Date Time Temp Pulse Resp B/P (MAP) Pulse Ox O2 Delivery O2 Flow Rate FiO2 12/29/18 09:00 Room Air 12/29/18 08:51 97.9 12/29/18 08:00 97.9 78 20 137/81 (99) 98 12/28/18 21:00 Room Air 12/28/18 20:00 97.9 82 18 116/67 (83) 98 12/28/18 16:00 97.3 93 18 141/76 (97) 98 I&O Intake and Output 12/28/18 12/29/18 19:00 07:00 Intake Total 600 ml 2150.000 ml Balance 600 ml 2150.000 ml Intake Oral 600 ml 1600 ml IV Total 550.000 ml # Voids 3 4 Dressing: dry Wound: clean Cardiovascular: RSR Respiratory: clear Abdomen: soft, non-tender, present bowel sounds Extremities: no cyanosis, other Laboratory Tests Test 12/29/18 11:57 Vancomycin Level Trough Pending Plan Problems: (1) Cellulitis of foot Assessment & Plan: This is a 53-year-old male with significant bilateral lower extremity venous incompetence, venous stasis ulcer, edema. Patient with acute cellulitis of the right lower extremity. Patient states that injury 3 days ago but in evaluating the extremity patient has multiple chronic ulcerations and injuries identified. Patient is aware of his of his venous stasis disease and has not received care thus far. Patient does state that when he lays flat the veins are not engorged in the in the morning after keeping his legs elevated occasionally he will no significant improvement in the edema. Patient states that he has been caring for the wound himself but has been unable to do so and given the pain discomfort along with the chest pain decided come in for evaluation. Currently no acute surgical intervention recommended. Plan for local wound care and antibiotics for cellulitis until improved. Long discussion was had with the patient in regards to his lower extremity venous incompetence and disease process. Patient is recommended to keep lower extremities elevated while in bed. Patient recommended to have venous compression stockings. Patient recommended follow-up as an outpatient for considerations of surgical intervention. For the meantime is for wound care apply Betadine to wounds foam dressing and Kerlix wrap to right lower extremity wounds. We will follow with recognitions. Thank you allowing me to participate in patient's care. MRI with Impression: Increased STIR and equivocally increased T1 signal within the fifth middle phalanx, could indicate osteomyelitis. Foci of subtle increased STIR signal without corresponding T1 abnormality within the fifth proximal and distal phalanges, the first distal phalanx, and in the fourth proximal, middle, and distal phalanges. Most likely represent reactive marrow changes, but early osteomyelitis is also possible Severe degenerative changes of the first metatarsophalangeal joint. Underlying mild marrow edema of the first metatarsal head is likely related to such Soft tissue edema, as described. Consider clinical history, likely on the basis of cellulitis but can also be vasogenic/hemodynamic in origin. No evidence of drainable abscess consistent with cellulitis no active osteo clinically Cruzito Gary Dec 29, 2018 12:25
[2018-12-29 16:00] VITALS: BP 116/72
[2018-12-29 20:00] VITALS: BP 132/70
[2018-12-29] MEDS: Vancomycin 1.5gm Premix IVPB SCH (20:10)
[2018-12-30] VITALS: BP 123/69
--- NOTE | 2018-12-30 01:15 | Progress Note ---
DATE: 12/29/2018 CARDIOLOGY PROGRESS NOTE SUBJECTIVE: Leg pain unchanged. Infectious Disease analytics consultant has reviewed scan and feels that osteomyelitis is a possibility. A prolonged course of antimicrobials is recommended. OBJECTIVE: VITAL SIGNS: Stable. LUNGS: Clear. CARDIAC: Regular. ABDOMEN: Soft. EXTREMITIES: Nonpitting edema. Venous lower extremity varicosities. Resolved erythema proximally. Still with wounds on the right foot. IMPRESSION: 1. Probable osteomyelitis. 2. Resolving cellulitis. 3. Wounds with MRSA. PLAN: 1. PICC line for prolonged antimicrobials. 2. Discharge planning to [facility] facility to complete antimicrobials. Benoit Ashford M.D. DR: Gustavo JOB#: [id number] CC:
[2018-12-30 04:00] VITALS: BP 139/82
[2018-12-30] MEDS: Vancomycin 1.5gm Premix IVPB SCH ×3 (05:10→20:47)
[2018-12-30] MEDS: NovoLOG Insulin Flexpen SUBQ SCH ×4 (06:18→20:49)
[2018-12-30 08:00] VITALS: BP 129/80
[2018-12-30] MEDS: Aspirin EC 81mg tab ORAL SCH (09:08)
[2018-12-30] MEDS: MS Contin 15mg tab ORAL SCH ×2 (09:10→20:48)
[2018-12-30] MEDS: Heparin 5000 units/ml inj SUBQ SCH ×2 (09:32→20:49)
[2018-12-30] MEDS: Nystatin Powder 100,000 units/gm 15gm TOPIC SCH ×2 (09:32→17:08)
--- NOTE | 2018-12-30 10:28 | Infectious Diseases Prog Note ---
"Assessment/Plan Assessment/Plan antibiotics : vancomycin iv A 1. right foot MRSA cellulitis | osteomyelitis 2. diabetes mellitus 3. hypertension 4. CVA P 1. continue iv vancomycin 37 more days 2. will follow up cultures Subjective Constitutional: Denies: fever, chills Respiratory: Denies: shortness of breath, dry cough Gastrointestinal/Abdominal: Reports: nausea; Denies: vomiting, diarrhea Musculoskeletal: Reports: pain Allergies: Coded Allergies: No Known Allergies (Unverified , 12/26/18) Objective Vital Signs Last 24 Hour Vital Signs Date Time Temp Pulse Resp B/P (MAP) Pulse Ox O2 Delivery O2 Flow Rate FiO2 12/30/18 08:00 98.0 73 18 129/80 (96) 98 12/30/18 04:00 97.9 78 20 139/82 (101) 99 12/30/18 00:00 97.6 73 20 123/69 (87) 98 12/29/18 21:00 Room Air 12/29/18 20:00 96.9 83 20 132/70 (90) 99 12/29/18 16:00 98.2 78 20 116/72 (87) 99 12/29/18 12:00 97.2 79 20 137/74 (95) 98 Height (Feet): 6 Height (Inches): 2.00 Weight (Pounds): 277 Respiratory/Chest: lungs clear Cardiovascular: normal rate, regular rhythm, no gallop/murmur Abdomen: soft, non tender Extremities: other - + edema, right 1st and 5th toe ulcer Laboratory Tests Test 12/29/18 11:57 Vancomycin Level Trough 11.3 ug/mL (5.0-12.0) Current Medications Medications (Trade) Dose Ordered Sig/Nuzhat Route PRN Reason Start Time Stop Time Status Last Admin Dose Admin Aspirin (Ecotrin) 81 mg DAILY ORAL 12/27/18 09:00 01/26/19 08:59 12/30/18 09:08 Clopidogrel Bisulfate (Plavix) 75 mg DAILY ORAL 12/27/18 09:00 01/26/19 08:59 12/30/18 09:08 Dextrose (Dextrose 50%) 25 ml Q30M PRN IV Hypoglycemia 12/26/18 23:00 01/25/19 22:59 Dextrose (Dextrose 50%) 50 ml Q30M PRN IV Hypoglycemia 12/26/18 23:00 01/25/19 22:59 Diazepam (Valium) 5 mg HSPRN PRN ORAL Insomnia 12/26/18 23:00 01/02/19 22:59 12/29/18 22:14 Gabapentin (Neurontin) 100 mg THREE TIMES A DAY ORAL 12/26/18 23:00 01/25/19 22:59 12/30/18 09:08 Heparin Sodium (Porcine) (Heparin 5000 units/ml) 5,000 units EVERY 12 HOURS SUBQ 12/27/18 10:00 01/26/19 09:59 12/30/18 09:32 Insulin Aspart (NovoLOG) BEFORE MEALS AND HS SUBQ 12/27/18 06:30 01/26/19 06:29 12/30/18 06:18 Morphine Sulfate (MS Contin) 15 mg Q12HR ORAL 12/26/18 23:00 01/02/19 22:59 12/30/18 09:10 Nystatin (Nystop Powder) 1 applic BID TOPIC 12/27/18 09:00 01/26/19 08:59 12/30/18 09:32 Vancomycin HCl (Vanco rx to dose) 1 ea DAILY PRN MISC Per rx protocol 12/26/18 23:00 01/31/19 23:00 Vancomycin HCl/ Dextrose 275 ml @ 137.5 mls/ hr Q8H IVPB 12/29/18 20:00 01/31/19 23:00 12/30/18 05:10 Kendra Locke MD Dec 30, 2018 10:28"
[2018-12-30 12:00] VITALS: BP 136/84
--- NOTE | 2018-12-30 15:32 | Surgery Progress Note ---
Surgery Progress Note Subjective Symptoms: improved, tolerating diet, voiding well, passing flatus, BM, pain decreased Objective Last 24 Hour Vital Signs Date Time Temp Pulse Resp B/P (MAP) Pulse Ox O2 Delivery O2 Flow Rate FiO2 12/30/18 12:00 98.7 86 19 136/84 (101) 98 12/30/18 09:00 Room Air 12/30/18 08:00 98.0 73 18 129/80 (96) 98 12/30/18 04:00 97.9 78 20 139/82 (101) 99 12/30/18 00:00 97.6 73 20 123/69 (87) 98 12/29/18 21:00 Room Air 12/29/18 20:00 96.9 83 20 132/70 (90) 99 12/29/18 16:00 98.2 78 20 116/72 (87) 99 I&O Intake and Output 12/29/18 12/30/18 19:00 07:00 Intake Total 1210 ml 1275.0 ml Balance 1210 ml 1275.0 ml Intake Oral 1210 ml 1000 ml IV Total 275.0 ml # Voids 2 3 Dressing: dry Wound: clean Cardiovascular: RSR Respiratory: clear Abdomen: soft, flat, non-tender, present bowel sounds Extremities: edema, no tenderness, other Plan Problems: (1) Cellulitis of foot Assessment & Plan: This is a 53-year-old male with significant bilateral lower extremity venous incompetence, venous stasis ulcer, edema. Patient with acute cellulitis of the right lower extremity. Patient states that injury 3 days ago but in evaluating the extremity patient has multiple chronic ulcerations and injuries identified. Patient is aware of his of his venous stasis disease and has not received care thus far. Patient does state that when he lays flat the veins are not engorged in the in the morning after keeping his legs elevated occasionally he will no significant improvement in the edema. Patient states that he has been caring for the wound himself but has been unable to do so and given the pain discomfort along with the chest pain decided come in for evaluation. Currently no acute surgical intervention recommended. Plan for local wound care and antibiotics for cellulitis until improved. Long discussion was had with the patient in regards to his lower extremity venous incompetence and disease process. Patient is recommended to keep lower extremities elevated while in bed. Patient recommended to have venous compression stockings. Patient recommended follow-up as an outpatient for considerations of surgical intervention. For the meantime is for wound care apply Betadine to wounds foam dressing and Kerlix wrap to right lower extremity wounds. We will follow with recognitions. Thank you allowing me to participate in patient's care. MRI with Impression: Increased STIR and equivocally increased T1 signal within the fifth middle phalanx, could indicate osteomyelitis. Foci of subtle increased STIR signal without corresponding T1 abnormality within the fifth proximal and distal phalanges, the first distal phalanx, and in the fourth proximal, middle, and distal phalanges. Most likely represent reactive marrow changes, but early osteomyelitis is also possible Severe degenerative changes of the first metatarsophalangeal joint. Underlying mild marrow edema of the first metatarsal head is likely related to such Soft tissue edema, as described. Consider clinical history, likely on the basis of cellulitis but can also be vasogenic/hemodynamic in origin. No evidence of drainable abscess consistent with cellulitis no active osteo clinically Cruzito Gary Dec 30, 2018 15:32
[2018-12-30 16:00] VITALS: BP 131/79
[2018-12-30 20:00] VITALS: BP 110/61
[2018-12-31] VITALS: BP 106/54
[2018-12-31 04:00] VITALS: BP 112/70
[2018-12-31] MEDS: Vancomycin 1.5gm Premix IVPB SCH ×3 (04:10→20:43)
[2018-12-31] MEDS: NovoLOG Insulin Flexpen SUBQ SCH ×4 (06:08→20:57)
[2018-12-31] MEDS ORDERED: Heparin1,000 units/500ml Premix(Conc:2 units/ml) IV PRN (07:30)
[2018-12-31] MEDS ORDERED: Lidocaine 1% Plain 30 ml INJ PRN (07:30)
[2018-12-31 08:00] VITALS: BP 114/69
[2018-12-31] MEDS: Aspirin EC 81mg tab ORAL SCH (08:12)
[2018-12-31] MEDS: MS Contin 15mg tab ORAL SCH ×2 (08:13→20:45)
[2018-12-31] MEDS: Heparin 5000 units/ml inj SUBQ SCH ×2 (08:18→21:00)
[2018-12-31] MEDS: Nystatin Powder 100,000 units/gm 15gm TOPIC SCH ×2 (08:20→17:03)
--- NOTE | 2018-12-31 10:08 | Pre-Procedure Note/Attestation ---
Pre-Procedure Note/Attestation Complete Prior to Procedure Planned Procedure: not applicable Procedure Narrative: PICC Indications for Procedure Pre-Operative Diagnosis: needs IV access prison Attestation I attest that I discussed the nature of the procedure; its benefits; risks and complications; and alternatives (and the risks and benefits of such alternatives ), prior to the procedure, with the patient (or the patient's legal high school admissions representative). I attest that, if there was a reasonable possibility of needing a blood transfusion, the patient (or the patient's legal high school admissions representative) was given the [facility] standardized written summary, pursuant to the Lul Allyson Blood Safety Act ([place] Health and Safety Code # 1645, as amended). I attest that I re-evaluated the patient just prior to the surgery and that there has been no change in the patient's H&P, except as documented below: Brandon Cunha MD Dec 31, 2018 10:08
--- NOTE | 2018-12-31 10:10 | Brief Operative Note ---
Immediate Post Operative Note Operative Note Pre-op Diagnosis: needs IV access senior care Procedure: PICC Post-op Diagnosis: same as pre-op Specimen: none Complications: none Fluids: none Implant(s) used?: No Brandon Cunha MD Dec 31, 2018 10:09
--- NOTE | 2018-12-31 11:02 | Surgery Progress Note ---
Surgery Progress Note Subjective Additional Comments no acute events labs noted Objective Last 24 Hour Vital Signs Date Time Temp Pulse Resp B/P (MAP) Pulse Ox O2 Delivery O2 Flow Rate FiO2 12/31/18 09:00 Room Air 12/31/18 08:00 97.0 81 23 114/69 (84) 97 12/31/18 04:00 97.6 69 18 112/70 (84) 97 12/31/18 00:00 97.9 78 18 106/54 (71) 96 12/30/18 21:00 Room Air 12/30/18 20:00 98.1 75 18 110/61 (77) 97 12/30/18 16:00 98.5 90 18 131/79 (96) 97 12/30/18 12:00 98.7 86 19 136/84 (101) 98 I&O Intake and Output 12/30/18 12/31/18 19:00 07:00 Intake Total 1915.0 ml 550.0 ml Output Total 1150 ml Balance 1915.0 ml -600.0 ml Intake Oral 1640 ml IV Total 275.0 ml 550.0 ml Output Urine Total 1150 ml # Voids 8 3 # Bowel Movements 1 1 Dressing: dry Wound: clean Cardiovascular: RSR Respiratory: clear Abdomen: soft, non-tender, present bowel sounds Extremities: edema, no tenderness, no cyanosis Laboratory Tests Test 12/30/18 18:45 Vancomycin Level Trough 16.0 ug/mL (5.0-12.0) H Plan Problems: (1) Cellulitis of foot Assessment & Plan: This is a 53-year-old male with significant bilateral lower extremity venous incompetence, venous stasis ulcer, edema. Patient with acute cellulitis of the right lower extremity. Patient states that injury 3 days ago but in evaluating the extremity patient has multiple chronic ulcerations and injuries identified. Patient is aware of his of his venous stasis disease and has not received care thus far. Patient does state that when he lays flat the veins are not engorged in the in the morning after keeping his legs elevated occasionally he will no significant improvement in the edema. Patient states that he has been caring for the wound himself but has been unable to do so and given the pain discomfort along with the chest pain decided come in for evaluation. Currently no acute surgical intervention recommended. Plan for local wound care and antibiotics for cellulitis until improved. Long discussion was had with the patient in regards to his lower extremity venous incompetence and disease process. Patient is recommended to keep lower extremities elevated while in bed. Patient recommended to have venous compression stockings. Patient recommended follow-up as an outpatient for considerations of surgical intervention. For the meantime is for wound care apply Betadine to wounds foam dressing and Kerlix wrap to right lower extremity wounds. We will follow with recognitions. Thank you allowing me to participate in patient's care. MRI with Impression: Increased STIR and equivocally increased T1 signal within the fifth middle phalanx, could indicate osteomyelitis. Foci of subtle increased STIR signal without corresponding T1 abnormality within the fifth proximal and distal phalanges, the first distal phalanx, and in the fourth proximal, middle, and distal phalanges. Most likely represent reactive marrow changes, but early osteomyelitis is also possible Severe degenerative changes of the first metatarsophalangeal joint. Underlying mild marrow edema of the first metatarsal head is likely related to such Soft tissue edema, as described. Consider clinical history, likely on the basis of cellulitis but can also be vasogenic/hemodynamic in origin. No evidence of drainable abscess consistent with cellulitis no active osteo clinically Cruzito Gary Dec 31, 2018 11:01
--- NOTE | 2018-12-31 11:45 | Infectious Diseases Prog Note ---
"Assessment/Plan Assessment/Plan A 1. right foot MRSA cellulitis | osteomyelitis 2. diabetes mellitus 3. hypertension 4. CVA P 1. continue iv vancomycin 36 more days 2. will follow up cultures Subjective ROS Limited/Unobtainable: No Constitutional: Reports: no symptoms, other - FEELS BETTER Respiratory: Reports: no symptoms Cardiovascular: Reports: no symptoms, other - had PICC line placement Gastrointestinal/Abdominal: Reports: no symptoms Allergies: Coded Allergies: No Known Allergies (Unverified , 12/26/18) Objective Vital Signs Last 24 Hour Vital Signs Date Time Temp Pulse Resp B/P (MAP) Pulse Ox O2 Delivery O2 Flow Rate FiO2 12/31/18 09:00 Room Air 12/31/18 08:00 97.0 81 23 114/69 (84) 97 12/31/18 04:00 97.6 69 18 112/70 (84) 97 12/31/18 00:00 97.9 78 18 106/54 (71) 96 12/30/18 21:00 Room Air 12/30/18 20:00 98.1 75 18 110/61 (77) 97 12/30/18 16:00 98.5 90 18 131/79 (96) 97 12/30/18 12:00 98.7 86 19 136/84 (101) 98 Height (Feet): 6 Height (Inches): 2.00 Weight (Pounds): 277 General Appearance: no acute distress HEENT: mucous membranes moist Respiratory/Chest: lungs clear Cardiovascular: normal rate, other - left arm PICC line Abdomen: soft, non tender Extremities: other - VARICOSE VEINS in both legs Skin: ulcers, other - R foot dressing Neurologic/Psychiatric: alert, oriented x 3, responsive Laboratory Tests Test 12/30/18 18:45 Vancomycin Level Trough 16.0 ug/mL (5.0-12.0) H Current Medications Medications (Trade) Dose Ordered Sig/Nuzhat Route PRN Reason Start Time Stop Time Status Last Admin Dose Admin Aspirin (Ecotrin) 81 mg DAILY ORAL 12/27/18 09:00 01/26/19 08:59 12/31/18 08:12 Chlorhexidine Gluconate (Karen-Hex 2%) 1 applic DAILY@1999 TOPIC 12/31/18 20:00 01/30/19 19:59 Clopidogrel Bisulfate (Plavix) 75 mg DAILY ORAL 12/27/18 09:00 01/26/19 08:59 12/31/18 08:12 Dextrose (Dextrose 50%) 25 ml Q30M PRN IV Hypoglycemia 12/26/18 23:00 01/25/19 22:59 Dextrose (Dextrose 50%) 50 ml Q30M PRN IV Hypoglycemia 12/26/18 23:00 01/25/19 22:59 Diazepam (Valium) 5 mg HSPRN PRN ORAL Insomnia 12/26/18 23:00 01/02/19 22:59 12/30/18 22:18 Gabapentin (Neurontin) 100 mg THREE TIMES A DAY ORAL 12/26/18 23:00 01/25/19 22:59 12/31/18 08:12 Heparin Sodium (Porcine) (Heparin 5000 units/ml) 5,000 units EVERY 12 HOURS SUBQ 12/27/18 10:00 01/26/19 09:59 12/30/18 09:32 Heparin Sodium/ Sodium Chloride (Heparin 1000 units/500ml Premix) 1,000 unit ONCE PRN IV PICC LINE PLACEMENT 12/31/18 07:30 01/02/19 07:29 Insulin Aspart (NovoLOG) BEFORE MEALS AND HS SUBQ 12/27/18 06:30 01/26/19 06:29 12/31/18 06:08 Lidocaine HCl (Xylocaine 1% 30ml) 30 ml ONCE PRN INJ picc line placement 12/31/18 07:30 01/02/19 07:29 Morphine Sulfate (MS Contin) 15 mg Q12HR ORAL 12/26/18 23:00 01/02/19 22:59 12/31/18 08:13 Nystatin (Nystop Powder) 1 applic BID TOPIC 12/27/18 09:00 01/26/19 08:59 12/31/18 08:20 Vancomycin HCl (Vanco rx to dose) 1 ea DAILY PRN MISC Per rx protocol 12/26/18 23:00 01/31/19 23:00 Vancomycin HCl/ Dextrose 275 ml @ 137.5 mls/ hr Q8H IVPB 12/29/18 20:00 01/31/19 23:00 12/31/18 04:10 Judd Alvarado MD Dec 31, 2018 11:45"
[2018-12-31 12:00] VITALS: BP 139/73
--- NOTE | 2018-12-31 14:35 | Diagnostic Imaging Report ---
Indications: Needs long-term IV access Technique: Ultrasound confirms patent compressible left basilic vein. Total sterile technique, including sterile probe cover and sterile gel, hat, mask, sterile gown, large sterile drape, and preparation with 2% chlorhexidine utilized. Local anesthesia with 1% lidocaine. Under real-time ultrasound guidance, puncture basilic vein using 21-gauge needle, documented and archived, passage 0.018 guidewire under direct fluoroscopy, which was used to determine appropriate catheter length, exchange for 4 Algerian peel-away sheath. 4 Algerian Bard dual-lumen power PICC cut to 47 cm. It was inserted through the peel-away sheath. Peel-away sheath and guidewire removed. Catheter fixed to the skin. Both catheter ports aspirated and flushed. Patient tolerated procedure well, without immediate complication. Digital radiograph documents satisfactory catheter tip position, at the cavoatrial junction. Total fluoroscopy time 11.4 seconds. Total dose area product [id number] [id number] Total number of images: 1 Impression: Successful placement of left arm PICC under sonographic and fluoroscopic guidance, as described above.
[2018-12-31 15:56] VITALS: BP 130/72
[2018-12-31 20:00] VITALS: BP 148/80
[2018-12-31] MEDS: Dyna-Hex 2% Top Sol 2oz TOPIC SCH (20:43)
[2019-01-01] VITALS: BP 110/67
[2019-01-01 04:00] VITALS: BP 105/70
[2019-01-01] MEDS: Vancomycin 1.5gm Premix IVPB SCH ×3 (04:09→20:07)
--- NOTE | 2019-01-01 04:45 | Progress Note ---
DATE: 12/31/2018 INTERNAL MEDICINE PROGRESS NOTE SUBJECTIVE: The patient had a PICC line placed. He was made aware of need for long-term antibiotics for management and treatment of osteomyelitis of foot. OBJECTIVE: The patient's exam is unchanged. Disposition options are being addressed. IV antibiotics to continue. Liver function studies are elevated since admission, although slightly improved and likely due to chronic hepatic steatosis and/or alcoholic liver disease. An ultrasound will be obtained as well. Benoit Ashford M.D. DR: MATTEO JOB#: [id number] CC:
[2019-01-01 05:07] LABS: BASOPHILS % (AUTO) 1.8 % (0.0-2.0); EOSINOPHILS % (AUTO) 3.7 % (0.0-3.0); HEMATOCRIT 40.7 % (42.0-52.0); HEMOGLOBIN 13.5 G/DL (14.2-18.0); LYMPHOCYTES % (AUTO) 23.9 % (20.0-45.0); MEAN CORPUSCULAR VOLUME 96 FL (80-99); MONOCYTES % (AUTO) 10.2 % (1.0-10.0); NEUTROPHILS % (AUTO) 60.4 % (45.0-75.0); PLATELET COUNT 122 K/UL (150-450); RED BLOOD COUNT 4.26 M/UL (4.70-6.10); RED CELL DISTRIBUTION WIDTH 13.2 % (11.6-14.8); WHITE BLOOD COUNT 5.3 K/UL (4.8-10.8)
[2019-01-01 05:32] LABS: ALANINE AMINOTRANSFERASE 144 U/L (12-78); ALBUMIN/GLOBULIN RATIO 0.8 (1.0-2.7); ALKALINE PHOSPHATASE 63 U/L (46-116); ANION GAP 8 mmol/L (5-15); ASPARTATE AMINO TRANSFERASE 79 U/L (15-37); BILIRUBIN,TOTAL 0.4 MG/DL (0.2-1.0); BLOOD UREA NITROGEN 28 mg/dL (7-18); CALCIUM 8.7 MG/DL (8.5-10.1); CARBON DIOXIDE 26 MMOL/L (21-32); CHLORIDE 105 MMOL/L (98-107); CREATININE 0.8 MG/DL (0.55-1.30); GAMMA GLUTAMYL TRANSPEPTIDASE 278 U/L (5-85); POTASSIUM 4.1 MMOL/L (3.5-5.1); SODIUM 139 MMOL/L (136-145)
[2019-01-01] MEDS: NovoLOG Insulin Flexpen SUBQ SCH ×4 (06:30→22:00)
[2019-01-01 07:59] VITALS: BP 124/73
[2019-01-01] MEDS: Heparin 5000 units/ml inj SUBQ SCH ×3 (09:00→21:00)
[2019-01-01] MEDS: Nystatin Powder 100,000 units/gm 15gm TOPIC SCH ×2 (09:00→17:06)
[2019-01-01] MEDS: MS Contin 15mg tab ORAL SCH ×2 (09:01→21:57)
[2019-01-01] MEDS: Aspirin EC 81mg tab ORAL SCH (09:01)
--- NOTE | 2019-01-01 09:59 | Diagnostic Imaging Report ---
Indication: Abnormal renal function tests and liver function tests Technique: Mckenzie-scale and duplex images of the upper abdomen were obtained Comparison: No comparison sonograms. Reference made to 12/26/2018 CT abdomen and pelvis Findings: Gallbladder is unremarkable, without stones, wall thickening, nor pericholecystic fluid. Sonographic Antonio's sign is negative. Common bile duct measures 4 mm in diameter. No intrahepatic biliary ductal dilatation. Liver demonstrates normal echogenicity, no focal abnormality. The left lobe demonstrates slight surface nodularity. Portal vein and hepatic veins are patent. Pancreas is unremarkable. The spleen is enlarged, measures 17.5 cm long axis dimension Left kidney measures 11.4 cm in length. Right kidney measures 12.9 cm length. Both kidneys demonstrate normal echogenicity. There is no hydronephrosis. Left kidney demonstrates an interpolar region cyst. . Non-aneurysmal abdominal aorta . Impression: Slight left hepatic lobe surface nodularity, could indicate early cirrhotic change. Correlate with clinical history and findings Splenomegaly, also reported on prior CT Left renal cyst incidentally noted. Negative for gallstones or dilated bile ducts
--- NOTE | 2019-01-01 10:47 | Infectious Diseases Prog Note ---
"Assessment/Plan Assessment/Plan antibiotics : vancomycin iv A 1. right foot MRSA cellulitis | osteomyelitis 2. diabetes mellitus 3. hypertension 4. CVA 5. cirrhosis, increased LFT P 1. continue iv vancomycin 35 more days 2. will follow up cultures Subjective Constitutional: Denies: fever, chills Respiratory: Denies: shortness of breath, dry cough Gastrointestinal/Abdominal: Reports: nausea; Denies: vomiting, diarrhea Musculoskeletal: Reports: pain - decreased in right foot Allergies: Coded Allergies: No Known Allergies (Unverified , 12/26/18) Objective Vital Signs Last 24 Hour Vital Signs Date Time Temp Pulse Resp B/P (MAP) Pulse Ox O2 Delivery O2 Flow Rate FiO2 01/01/19 08:03 Room Air 01/01/19 07:59 98.3 80 18 124/73 (90) 97 01/01/19 04:00 98.3 80 18 105/70 (82) 97 01/01/19 00:00 97.9 83 18 110/67 (81) 97 12/31/18 21:00 Room Air 12/31/18 20:00 98.0 80 18 148/80 (102) 97 12/31/18 15:56 97.0 77 23 130/72 (91) 98 12/31/18 12:00 97.3 80 23 139/73 (95) 98 Height (Feet): 6 Height (Inches): 2.00 Weight (Pounds): 277 Respiratory/Chest: lungs clear Cardiovascular: normal rate, regular rhythm, no gallop/murmur Abdomen: soft, non tender Extremities: no edema, other - right foot in dressings, left arm PICC Laboratory Tests Test 01/01/19 04:34 White Blood Count 5.3 K/UL (4.8-10.8) Red Blood Count 4.26 M/UL (4.70-6.10) L Hemoglobin 13.5 G/DL (14.2-18.0) L Hematocrit 40.7 % (42.0-52.0) L Mean Corpuscular Volume 96 FL (80-99) Mean Corpuscular Hemoglobin 31.7 PG (27.0-31.0) H Mean Corpuscular Hemoglobin Concent 33.1 G/DL (32.0-36.0) Red Cell Distribution Width 13.2 % (11.6-14.8) Platelet Count 122 K/UL (150-450) L Mean Platelet Volume 6.3 FL (6.5-10.1) L Neutrophils (%) (Auto) 60.4 % (45.0-75.0) Lymphocytes (%) (Auto) 23.9 % (20.0-45.0) Monocytes (%) (Auto) 10.2 % (1.0-10.0) H Eosinophils (%) (Auto) 3.7 % (0.0-3.0) H Basophils (%) (Auto) 1.8 % (0.0-2.0) Sodium Level 139 MMOL/L (136-145) Potassium Level 4.1 MMOL/L (3.5-5.1) Chloride Level 105 MMOL/L (98-107) Carbon Dioxide Level 26 MMOL/L (21-32) Anion Gap 8 mmol/L (5-15) Blood Urea Nitrogen 28 mg/dL (7-18) H Creatinine 0.8 MG/DL (0.55-1.30) Estimat Glomerular Filtration Rate > 60 mL/min (>60) Glucose Level 162 MG/DL (74-106) H Calcium Level 8.7 MG/DL (8.5-10.1) Magnesium Level 1.7 MG/DL (1.8-2.4) L Total Bilirubin 0.4 MG/DL (0.2-1.0) Gamma Glutamyl Transpeptidase 278 U/L (5-85) H Aspartate Amino Transf (AST/SGOT) 79 U/L (15-37) H Alanine Aminotransferase (ALT/SGPT) 144 U/L (12-78) H Alkaline Phosphatase 63 U/L (46-116) Total Protein 6.6 G/DL (6.4-8.2) Albumin 3.0 G/DL (3.4-5.0) L Globulin 3.6 g/dL Albumin/Globulin Ratio 0.8 (1.0-2.7) L Current Medications Medications (Trade) Dose Ordered Sig/Nuzhat Route PRN Reason Start Time Stop Time Status Last Admin Dose Admin Aspirin (Ecotrin) 81 mg DAILY ORAL 12/27/18 09:00 01/26/19 08:59 01/01/19 09:01 Chlorhexidine Gluconate (Karen-Hex 2%) 1 applic DAILY@1999 TOPIC 12/31/18 20:00 01/30/19 19:59 12/31/18 20:43 Clopidogrel Bisulfate (Plavix) 75 mg DAILY ORAL 12/27/18 09:00 01/26/19 08:59 01/01/19 09:01 Dextrose (Dextrose 50%) 25 ml Q30M PRN IV Hypoglycemia 12/26/18 23:00 01/25/19 22:59 Dextrose (Dextrose 50%) 50 ml Q30M PRN IV Hypoglycemia 12/26/18 23:00 01/25/19 22:59 Diazepam (Valium) 5 mg HSPRN PRN ORAL Insomnia 12/26/18 23:00 01/02/19 22:59 12/31/18 20:57 Gabapentin (Neurontin) 100 mg THREE TIMES A DAY ORAL 12/26/18 23:00 01/25/19 22:59 01/01/19 09:01 Heparin Sodium (Porcine) (Heparin 5000 units/ml) 5,000 units EVERY 12 HOURS SUBQ 12/27/18 10:00 01/26/19 09:59 12/30/18 09:32 Heparin Sodium/ Sodium Chloride (Heparin 1000 units/500ml Premix) 1,000 unit ONCE PRN IV PICC LINE PLACEMENT 12/31/18 07:30 01/02/19 07:29 Insulin Aspart (NovoLOG) BEFORE MEALS AND HS SUBQ 12/27/18 06:30 01/26/19 06:29 12/31/18 20:57 Lidocaine HCl (Xylocaine 1% 30ml) 30 ml ONCE PRN INJ picc line placement 12/31/18 07:30 01/02/19 07:29 Morphine Sulfate (MS Contin) 15 mg Q12HR ORAL 12/26/18 23:00 01/02/19 22:59 01/01/19 09:01 Nystatin (Nystop Powder) 1 applic BID TOPIC 12/27/18 09:00 01/26/19 08:59 12/31/18 17:03 Vancomycin HCl (Vanco rx to dose) 1 ea DAILY PRN MISC Per rx protocol 12/26/18 23:00 01/31/19 23:00 Vancomycin HCl/ Dextrose 275 ml @ 137.5 mls/ hr Q8H IVPB 12/29/18 20:00 01/31/19 23:00 01/01/19 04:09 Kendra Locke MD Jan 01, 2019 10:47"
[2019-01-01 12:00] VITALS: BP 120/73
--- NOTE | 2019-01-01 15:50 | Surgery Progress Note ---
Surgery Progress Note Subjective Symptoms: improved, pain absent, tolerating diet, voiding well, passing flatus Objective Last 24 Hour Vital Signs Date Time Temp Pulse Resp B/P (MAP) Pulse Ox O2 Delivery O2 Flow Rate FiO2 01/01/19 12:00 98.3 75 18 120/73 (89) 97 01/01/19 09:31 98.3 01/01/19 08:03 Room Air 01/01/19 07:59 98.3 80 18 124/73 (90) 97 01/01/19 04:00 98.3 80 18 105/70 (82) 97 01/01/19 00:00 97.9 83 18 110/67 (81) 97 12/31/18 21:00 Room Air 12/31/18 20:00 98.0 80 18 148/80 (102) 97 12/31/18 15:56 97.0 77 23 130/72 (91) 98 I&O Intake and Output 12/31/18 01/01/19 19:00 07:00 Intake Total 275.0 ml 550.0 ml Balance 275.0 ml 550.0 ml IV Total 275.0 ml 550.0 ml # Voids 10 2 # Bowel Movements 1 Dressing: dry Wound: clean Cardiovascular: RSR Respiratory: clear Abdomen: soft, non-tender, present bowel sounds Extremities: edema, no cyanosis, other Laboratory Tests Test 01/01/19 04:34 White Blood Count 5.3 K/UL (4.8-10.8) Red Blood Count 4.26 M/UL (4.70-6.10) L Hemoglobin 13.5 G/DL (14.2-18.0) L Hematocrit 40.7 % (42.0-52.0) L Mean Corpuscular Volume 96 FL (80-99) Mean Corpuscular Hemoglobin 31.7 PG (27.0-31.0) H Mean Corpuscular Hemoglobin Concent 33.1 G/DL (32.0-36.0) Red Cell Distribution Width 13.2 % (11.6-14.8) Platelet Count 122 K/UL (150-450) L Mean Platelet Volume 6.3 FL (6.5-10.1) L Neutrophils (%) (Auto) 60.4 % (45.0-75.0) Lymphocytes (%) (Auto) 23.9 % (20.0-45.0) Monocytes (%) (Auto) 10.2 % (1.0-10.0) H Eosinophils (%) (Auto) 3.7 % (0.0-3.0) H Basophils (%) (Auto) 1.8 % (0.0-2.0) Sodium Level 139 MMOL/L (136-145) Potassium Level 4.1 MMOL/L (3.5-5.1) Chloride Level 105 MMOL/L (98-107) Carbon Dioxide Level 26 MMOL/L (21-32) Anion Gap 8 mmol/L (5-15) Blood Urea Nitrogen 28 mg/dL (7-18) H Creatinine 0.8 MG/DL (0.55-1.30) Estimat Glomerular Filtration Rate > 60 mL/min (>60) Glucose Level 162 MG/DL (74-106) H Calcium Level 8.7 MG/DL (8.5-10.1) Magnesium Level 1.7 MG/DL (1.8-2.4) L Total Bilirubin 0.4 MG/DL (0.2-1.0) Gamma Glutamyl Transpeptidase 278 U/L (5-85) H Aspartate Amino Transf (AST/SGOT) 79 U/L (15-37) H Alanine Aminotransferase (ALT/SGPT) 144 U/L (12-78) H Alkaline Phosphatase 63 U/L (46-116) Total Protein 6.6 G/DL (6.4-8.2) Albumin 3.0 G/DL (3.4-5.0) L Globulin 3.6 g/dL Albumin/Globulin Ratio 0.8 (1.0-2.7) L Plan Problems: (1) Cellulitis of foot Assessment & Plan: This is a 53-year-old male with significant bilateral lower extremity venous incompetence, venous stasis ulcer, edema. Patient with acute cellulitis of the right lower extremity. Patient states that injury 3 days ago but in evaluating the extremity patient has multiple chronic ulcerations and injuries identified. Patient is aware of his of his venous stasis disease and has not received care thus far. Patient does state that when he lays flat the veins are not engorged in the in the morning after keeping his legs elevated occasionally he will no significant improvement in the edema. Patient states that he has been caring for the wound himself but has been unable to do so and given the pain discomfort along with the chest pain decided come in for evaluation. Currently no acute surgical intervention recommended. Plan for local wound care and antibiotics for cellulitis until improved. Long discussion was had with the patient in regards to his lower extremity venous incompetence and disease process. Patient is recommended to keep lower extremities elevated while in bed. Patient recommended to have venous compression stockings. Patient recommended follow-up as an outpatient for considerations of surgical intervention. For the meantime is for wound care apply Betadine to wounds foam dressing and Kerlix wrap to right lower extremity wounds. We will follow with recognitions. Thank you allowing me to participate in patient's care. MRI with Impression: Increased STIR and equivocally increased T1 signal within the fifth middle phalanx, could indicate osteomyelitis. Foci of subtle increased STIR signal without corresponding T1 abnormality within the fifth proximal and distal phalanges, the first distal phalanx, and in the fourth proximal, middle, and distal phalanges. Most likely represent reactive marrow changes, but early osteomyelitis is also possible Severe degenerative changes of the first metatarsophalangeal joint. Underlying mild marrow edema of the first metatarsal head is likely related to such Soft tissue edema, as described. Consider clinical history, likely on the basis of cellulitis but can also be vasogenic/hemodynamic in origin. No evidence of drainable abscess consistent with cellulitis no active osteo clinically Cruzito Gary Jan 01, 2019 15:49
[2019-01-01 16:19] VITALS: BP 133/78
[2019-01-01 20:00] VITALS: BP 107/71
[2019-01-01] MEDS: Dyna-Hex 2% Top Sol 2oz TOPIC SCH (20:07)
[2019-01-02] VITALS: BP 132/79
[2019-01-02] MEDS: Vancomycin 1.5gm Premix IVPB SCH ×3 (03:52→20:00)
[2019-01-02 04:00] VITALS: BP 123/73
[2019-01-02] MEDS: NovoLOG Insulin Flexpen SUBQ SCH ×4 (06:30→21:00)
[2019-01-02 08:00] VITALS: BP 130/78
[2019-01-02] MEDS: Aspirin EC 81mg tab ORAL SCH (08:53)
[2019-01-02] MEDS: MS Contin 15mg tab ORAL SCH ×2 (08:55→21:19)
[2019-01-02] MEDS: Nystatin Powder 100,000 units/gm 15gm TOPIC SCH ×2 (08:55→17:12)
[2019-01-02] MEDS: Heparin 5000 units/ml inj SUBQ SCH ×2 (08:56→21:00)
[2019-01-02 12:00] VITALS: BP 128/86
--- NOTE | 2019-01-02 12:23 | Surgery Progress Note ---
Surgery Progress Note Subjective Symptoms: improved, tolerating diet, voiding well, passing flatus, BM, pain decreased Objective Last 24 Hour Vital Signs Date Time Temp Pulse Resp B/P (MAP) Pulse Ox O2 Delivery O2 Flow Rate FiO2 01/02/19 09:00 Room Air 01/02/19 08:00 98.4 79 16 130/78 (95) 98 01/02/19 04:00 97.4 69 16 123/73 (90) 98 01/02/19 00:00 98.1 79 18 132/79 (96) 99 01/01/19 21:00 Room Air 01/01/19 20:00 97.6 90 20 107/71 (83) 98 01/01/19 16:19 98.3 70 18 133/78 (96) 97 I&O Intake and Output 01/01/19 01/02/19 19:00 07:00 Intake Total 550.0 ml Balance 550.0 ml IV Total 550.0 ml # Voids 1 2 Dressing: dry Wound: clean Cardiovascular: RSR Respiratory: clear Abdomen: soft, flat, present bowel sounds, non-distended Extremities: edema, no tenderness, no cyanosis Plan Problems: (1) Cellulitis of foot Assessment & Plan: This is a 53-year-old male with significant bilateral lower extremity venous incompetence, venous stasis ulcer, edema. Patient with acute cellulitis of the right lower extremity. Patient states that injury 3 days ago but in evaluating the extremity patient has multiple chronic ulcerations and injuries identified. Patient is aware of his of his venous stasis disease and has not received care thus far. Patient does state that when he lays flat the veins are not engorged in the in the morning after keeping his legs elevated occasionally he will no significant improvement in the edema. Patient states that he has been caring for the wound himself but has been unable to do so and given the pain discomfort along with the chest pain decided come in for evaluation. Currently no acute surgical intervention recommended. Plan for local wound care and antibiotics for cellulitis until improved. Long discussion was had with the patient in regards to his lower extremity venous incompetence and disease process. Patient is recommended to keep lower extremities elevated while in bed. Patient recommended to have venous compression stockings. Patient recommended follow-up as an outpatient for considerations of surgical intervention. For the meantime is for wound care apply Betadine to wounds foam dressing and Kerlix wrap to right lower extremity wounds. We will follow with recognitions. Thank you allowing me to participate in patient's care. MRI with Impression: Increased STIR and equivocally increased T1 signal within the fifth middle phalanx, could indicate osteomyelitis. Foci of subtle increased STIR signal without corresponding T1 abnormality within the fifth proximal and distal phalanges, the first distal phalanx, and in the fourth proximal, middle, and distal phalanges. Most likely represent reactive marrow changes, but early osteomyelitis is also possible Severe degenerative changes of the first metatarsophalangeal joint. Underlying mild marrow edema of the first metatarsal head is likely related to such Soft tissue edema, as described. Consider clinical history, likely on the basis of cellulitis but can also be vasogenic/hemodynamic in origin. No evidence of drainable abscess consistent with cellulitis no active osteo clinically doing better taking care of himself edema improved wound stable pending placement Cruzito Gary Jan 02, 2019 12:23
[2019-01-02 16:00] VITALS: BP 142/85
[2019-01-02 20:00] VITALS: BP 135/74
[2019-01-02] MEDS: Dyna-Hex 2% Top Sol 2oz TOPIC SCH (20:00)
[2019-01-03] VITALS: BP 144/81
--- NOTE | 2019-01-03 02:45 | Progress Note ---
DATE: 01/02/2019 INTERNAL MEDICINE PROGRESS NOTE SUBJECTIVE: Condition unchanged. No new complaints. Vitals are stable with no fevers. Abdominal ultrasound is reviewed. Wound care is ongoing. Edema and redness have diminished. Wound healing is progressing as expected per surgical note. IMPRESSION: 1. Cellulitis, osteomyelitis right foot. 2. Type 2 diabetes mellitus. 3. Chronic venous insufficiency. 4. Varicose veins. 5. Alcoholic liver disease. 6. Hepatosplenomegaly likely suggesting early cirrhosis. PLAN OF CARE: 1. Continue antimicrobials. 2. The patient advised regarding cessation of alcohol use. 3. Wound care. 4. Follow up liver function studies. Benoit Ashford M.D. DR: MARIA T JOB#: [id number] CC:
--- NOTE | 2019-01-03 02:45 | Progress Note ---
DATE: 01/01/2019 SUBJECTIVE: The patient with no new complaints. Tolerating wound care and antimicrobials. OBJECTIVE: VITAL SIGNS: Blood pressure 120/73, heart rate 75, respiratory rate 18, and afebrile. LUNGS: Clear. CARDIAC: Regular. ABDOMEN: Soft. EXTREMITIES: No edema. Right foot has dressing in place and edema has decreased. LABORATORY DATA: White count 5.3, hemoglobin 13.5. Potassium 4.1, BUN 28, creatinine 0.8. Magnesium 1.7. Liver function studies are elevated. IMPRESSION: 1. Cellulitis. 2. Osteomyelitis, right foot. 3. Hypomagnesemia. 4. Alcoholic liver disease. 5. Transaminitis. 6. Glucose intolerance. PLAN: 1. Follow up liver ultrasound. 2. Continue antimicrobials and hydration. 3. Follow-up laboratory studies. 4. Wound care. Benoit Ashford M.D. DR: Gustavo JOB#: [id number] CC:
[2019-01-03 04:00] VITALS: BP 119/75
[2019-01-03] MEDS: Vancomycin 1.5gm Premix IVPB SCH ×3 (04:00→20:09)
[2019-01-03] MEDS: NovoLOG Insulin Flexpen SUBQ SCH ×4 (06:20→20:44)
[2019-01-03 08:00] VITALS: BP 122/69
[2019-01-03 08:12] LABS: BASOPHILS % (AUTO) 1.7 % (0.0-2.0); HEMATOCRIT 40.1 % (42.0-52.0); HEMOGLOBIN 13.3 G/DL (14.2-18.0); LYMPHOCYTES % (AUTO) 23.4 % (20.0-45.0); MEAN CORPUSCULAR VOLUME 97 FL (80-99); MONOCYTES % (AUTO) 10.5 % (1.0-10.0); NEUTROPHILS % (AUTO) 60.4 % (45.0-75.0); PLATELET COUNT 118 K/UL (150-450); RED BLOOD COUNT 4.14 M/UL (4.70-6.10); RED CELL DISTRIBUTION WIDTH 12.5 % (11.6-14.8); WHITE BLOOD COUNT 5.3 K/UL (4.8-10.8)
[2019-01-03 08:55] LABS: ALANINE AMINOTRANSFERASE 148 U/L (12-78); ALBUMIN 3.1 G/DL (3.4-5.0); ALKALINE PHOSPHATASE 64 U/L (46-116); ANION GAP 10 mmol/L (5-15); ASPARTATE AMINO TRANSFERASE 66 U/L (15-37); BILIRUBIN,DIRECT 0.1 MG/DL (0.0-0.3); BILIRUBIN,TOTAL 0.4 MG/DL (0.2-1.0); BLOOD UREA NITROGEN 26 mg/dL (7-18); CALCIUM 8.7 MG/DL (8.5-10.1); CARBON DIOXIDE 24 MMOL/L (21-32); CHLORIDE 106 MMOL/L (98-107); CREATININE 0.7 MG/DL (0.55-1.30); GAMMA GLUTAMYL TRANSPEPTIDASE 257 U/L (5-85); POTASSIUM 4.1 MMOL/L (3.5-5.1); SODIUM 139 MMOL/L (136-145)
[2019-01-03] MEDS: Heparin 5000 units/ml inj SUBQ SCH ×2 (09:00→20:10)
[2019-01-03] MEDS: Aspirin EC 81mg tab ORAL SCH (09:19)
[2019-01-03] MEDS: MS Contin 15mg tab ORAL SCH ×2 (09:20→20:07)
[2019-01-03] MEDS: Nystatin Powder 100,000 units/gm 15gm TOPIC SCH ×2 (09:21→18:15)
[2019-01-03] MEDS ORDERED: Cathflo Alteplase 2mg Inj INJ ONE (10:00)
[2019-01-03 12:00] VITALS: BP 127/80
--- NOTE | 2019-01-03 12:11 | Infectious Diseases Prog Note ---
"Assessment/Plan Assessment/Plan A 1. right foot MRSA cellulitis | osteomyelitis 2. diabetes mellitus 3. hypertension 4. CVA 5.chronic liver disease P 1. continue iv vancomycin 33 more days 2. will follow up cultures Subjective ROS Limited/Unobtainable: No Constitutional: Reports: no symptoms Respiratory: Reports: no symptoms Cardiovascular: Reports: no symptoms Gastrointestinal/Abdominal: Reports: no symptoms Genitourinary: Reports: no symptoms Neurologic: Reports: no symptoms Musculoskeletal: Reports: other - pain of right foot with walking Allergies: Coded Allergies: No Known Allergies (Unverified , 12/26/18) Objective Vital Signs Last 24 Hour Vital Signs Date Time Temp Pulse Resp B/P (MAP) Pulse Ox O2 Delivery O2 Flow Rate FiO2 01/03/19 09:00 Room Air 01/03/19 08:00 97.3 76 20 122/69 (86) 98 01/03/19 04:00 98.1 74 18 119/75 (90) 99 01/03/19 00:00 98.0 82 20 144/81 (102) 99 01/02/19 21:00 Room Air 01/02/19 20:00 97.9 80 20 135/74 (94) 98 01/02/19 16:00 98.6 93 18 142/85 (104) 98 Height (Feet): 6 Height (Inches): 2.00 Weight (Pounds): 277 General Appearance: no acute distress HEENT: mucous membranes moist Respiratory/Chest: lungs clear Cardiovascular: normal rate, other - PICC line Extremities: other - varicose veins Skin: other - right pete dressing Laboratory Tests Test 01/03/19 05:50 White Blood Count 5.3 K/UL (4.8-10.8) Red Blood Count 4.14 M/UL (4.70-6.10) L Hemoglobin 13.3 G/DL (14.2-18.0) L Hematocrit 40.1 % (42.0-52.0) L Mean Corpuscular Volume 97 FL (80-99) Mean Corpuscular Hemoglobin 32.2 PG (27.0-31.0) H Mean Corpuscular Hemoglobin Concent 33.2 G/DL (32.0-36.0) Red Cell Distribution Width 12.5 % (11.6-14.8) Platelet Count 118 K/UL (150-450) L Mean Platelet Volume 5.8 FL (6.5-10.1) L Neutrophils (%) (Auto) 60.4 % (45.0-75.0) Lymphocytes (%) (Auto) 23.4 % (20.0-45.0) Monocytes (%) (Auto) 10.5 % (1.0-10.0) H Eosinophils (%) (Auto) 4.0 % (0.0-3.0) H Basophils (%) (Auto) 1.7 % (0.0-2.0) Sodium Level 139 MMOL/L (136-145) Potassium Level 4.1 MMOL/L (3.5-5.1) Chloride Level 106 MMOL/L (98-107) Carbon Dioxide Level 24 MMOL/L (21-32) Anion Gap 10 mmol/L (5-15) Blood Urea Nitrogen 26 mg/dL (7-18) H Creatinine 0.7 MG/DL (0.55-1.30) Estimat Glomerular Filtration Rate > 60 mL/min (>60) Glucose Level 194 MG/DL (74-106) H Calcium Level 8.7 MG/DL (8.5-10.1) Magnesium Level 1.7 MG/DL (1.8-2.4) L Total Bilirubin 0.4 MG/DL (0.2-1.0) Direct Bilirubin 0.1 MG/DL (0.0-0.3) Gamma Glutamyl Transpeptidase 257 U/L (5-85) H Aspartate Amino Transf (AST/SGOT) 66 U/L (15-37) H Alanine Aminotransferase (ALT/SGPT) 148 U/L (12-78) H Alkaline Phosphatase 64 U/L (46-116) Total Protein 6.8 G/DL (6.4-8.2) Albumin 3.1 G/DL (3.4-5.0) L Current Medications Medications (Trade) Dose Ordered Sig/Nuzhat Route PRN Reason Start Time Stop Time Status Last Admin Dose Admin Aspirin (Ecotrin) 81 mg DAILY ORAL 12/27/18 09:00 01/26/19 08:59 01/03/19 09:19 Chlorhexidine Gluconate (Karen-Hex 2%) 1 applic DAILY@1999 TOPIC 12/31/18 20:00 01/30/19 19:59 01/02/19 20:00 Clopidogrel Bisulfate (Plavix) 75 mg DAILY ORAL 12/27/18 09:00 01/26/19 08:59 01/03/19 09:20 Dextrose (Dextrose 50%) 25 ml Q30M PRN IV Hypoglycemia 12/26/18 23:00 01/25/19 22:59 Dextrose (Dextrose 50%) 50 ml Q30M PRN IV Hypoglycemia 12/26/18 23:00 01/25/19 22:59 Diazepam (Valium) 5 mg HSPRN PRN ORAL Insomnia 01/03/19 00:00 01/10/19 00:00 01/02/19 23:55 Gabapentin (Neurontin) 100 mg THREE TIMES A DAY ORAL 12/26/18 23:00 01/25/19 22:59 01/03/19 09:20 Heparin Sodium (Porcine) (Heparin 5000 units/ml) 5,000 units EVERY 12 HOURS SUBQ 12/27/18 10:00 01/26/19 09:59 12/30/18 09:32 Insulin Aspart (NovoLOG) BEFORE MEALS AND HS SUBQ 12/27/18 06:30 01/26/19 06:29 01/03/19 11:44 Morphine Sulfate (MS Contin) 15 mg Q12HR ORAL 01/03/19 09:00 01/10/19 08:59 01/03/19 09:20 Nystatin (Nystop Powder) 1 applic BID TOPIC 12/27/18 09:00 01/26/19 08:59 01/03/19 09:21 Ondansetron HCl (Zofran) 4 mg Q6H PRN IVP Nausea & Vomiting 01/03/19 11:30 02/02/19 11:29 Vancomycin HCl (Vanco rx to dose) 1 ea DAILY PRN MISC Per rx protocol 12/26/18 23:00 01/31/19 23:00 Vancomycin HCl/ Dextrose 275 ml @ 137.5 mls/ hr Q8H IVPB 12/29/18 20:00 01/31/19 23:00 01/03/19 04:00 Judd Alvarado MD Jan 03, 2019 12:11"
[2019-01-03 16:00] VITALS: BP 115/71
[2019-01-03 20:00] VITALS: BP 124/81
[2019-01-03] MEDS: Dyna-Hex 2% Top Sol 2oz TOPIC SCH (20:05)
--- NOTE | 2019-01-03 20:32 | Surgery Progress Note ---
Surgery Progress Note Subjective Additional Comments late entry. patient doing well. no acute events. pending placement Objective Last 24 Hour Vital Signs Date Time Temp Pulse Resp B/P (MAP) Pulse Ox O2 Delivery O2 Flow Rate FiO2 01/03/19 16:00 97.5 82 18 115/71 (86) 98 01/03/19 12:00 97.0 77 18 127/80 (96) 100 01/03/19 09:00 Room Air 01/03/19 08:00 97.3 76 20 122/69 (86) 98 01/03/19 04:00 98.1 74 18 119/75 (90) 99 01/03/19 00:00 98.0 82 20 144/81 (102) 99 01/02/19 21:00 Room Air I&O Intake and Output 01/02/19 01/03/19 19:00 07:00 Intake Total 275.0 ml 3050.0 ml Balance 275.0 ml 3050.0 ml Intake Oral 2500 ml IV Total 275.0 ml 550.0 ml # Voids 4 4 # Bowel Movements 1 Dressing: dry Wound: clean Cardiovascular: RSR Respiratory: clear Abdomen: soft, flat, present bowel sounds Extremities: edema, no tenderness, no cyanosis Laboratory Tests Test 01/03/19 05:50 White Blood Count 5.3 K/UL (4.8-10.8) Red Blood Count 4.14 M/UL (4.70-6.10) L Hemoglobin 13.3 G/DL (14.2-18.0) L Hematocrit 40.1 % (42.0-52.0) L Mean Corpuscular Volume 97 FL (80-99) Mean Corpuscular Hemoglobin 32.2 PG (27.0-31.0) H Mean Corpuscular Hemoglobin Concent 33.2 G/DL (32.0-36.0) Red Cell Distribution Width 12.5 % (11.6-14.8) Platelet Count 118 K/UL (150-450) L Mean Platelet Volume 5.8 FL (6.5-10.1) L Neutrophils (%) (Auto) 60.4 % (45.0-75.0) Lymphocytes (%) (Auto) 23.4 % (20.0-45.0) Monocytes (%) (Auto) 10.5 % (1.0-10.0) H Eosinophils (%) (Auto) 4.0 % (0.0-3.0) H Basophils (%) (Auto) 1.7 % (0.0-2.0) Sodium Level 139 MMOL/L (136-145) Potassium Level 4.1 MMOL/L (3.5-5.1) Chloride Level 106 MMOL/L (98-107) Carbon Dioxide Level 24 MMOL/L (21-32) Anion Gap 10 mmol/L (5-15) Blood Urea Nitrogen 26 mg/dL (7-18) H Creatinine 0.7 MG/DL (0.55-1.30) Estimat Glomerular Filtration Rate > 60 mL/min (>60) Glucose Level 194 MG/DL (74-106) H Calcium Level 8.7 MG/DL (8.5-10.1) Magnesium Level 1.7 MG/DL (1.8-2.4) L Total Bilirubin 0.4 MG/DL (0.2-1.0) Direct Bilirubin 0.1 MG/DL (0.0-0.3) Gamma Glutamyl Transpeptidase 257 U/L (5-85) H Aspartate Amino Transf (AST/SGOT) 66 U/L (15-37) H Alanine Aminotransferase (ALT/SGPT) 148 U/L (12-78) H Alkaline Phosphatase 64 U/L (46-116) Total Protein 6.8 G/DL (6.4-8.2) Albumin 3.1 G/DL (3.4-5.0) L Plan Problems: (1) Cellulitis of foot Assessment & Plan: This is a 53-year-old male with significant bilateral lower extremity venous incompetence, venous stasis ulcer, edema. Patient with acute cellulitis of the right lower extremity. Patient states that injury 3 days ago but in evaluating the extremity patient has multiple chronic ulcerations and injuries identified. Patient is aware of his of his venous stasis disease and has not received care thus far. Patient does state that when he lays flat the veins are not engorged in the in the morning after keeping his legs elevated occasionally he will no significant improvement in the edema. Patient states that he has been caring for the wound himself but has been unable to do so and given the pain discomfort along with the chest pain decided come in for evaluation. Currently no acute surgical intervention recommended. Plan for local wound care and antibiotics for cellulitis until improved. Long discussion was had with the patient in regards to his lower extremity venous incompetence and disease process. Patient is recommended to keep lower extremities elevated while in bed. Patient recommended to have venous compression stockings. Patient recommended follow-up as an outpatient for considerations of surgical intervention. For the meantime is for wound care apply Betadine to wounds foam dressing and Kerlix wrap to right lower extremity wounds. We will follow with recognitions. Thank you allowing me to participate in patient's care. MRI with Impression: Increased STIR and equivocally increased T1 signal within the fifth middle phalanx, could indicate osteomyelitis. Foci of subtle increased STIR signal without corresponding T1 abnormality within the fifth proximal and distal phalanges, the first distal phalanx, and in the fourth proximal, middle, and distal phalanges. Most likely represent reactive marrow changes, but early osteomyelitis is also possible Severe degenerative changes of the first metatarsophalangeal joint. Underlying mild marrow edema of the first metatarsal head is likely related to such Soft tissue edema, as described. Consider clinical history, likely on the basis of cellulitis but can also be vasogenic/hemodynamic in origin. No evidence of drainable abscess consistent with cellulitis no active osteo clinically doing better taking care of himself edema improved wound stable pending placement Cruzito Gary Jan 03, 2019 20:32
--- NOTE | 2019-01-04 00:45 | Progress Note ---
DATE: 01/03/2019 INTERNAL MEDICINE PROGRESS NOTE SUBJECTIVE: The patient has some facial eczema noted. OBJECTIVE: VITAL SIGNS: Stable. Wound care is ongoing. LABORATORY DATA: Reviewed. Exam otherwise without change. IMPRESSION: 1. Right lower extremity foot cellulitis, ulcer, and osteomyelitis. 2. Type 2 diabetes mellitus. 3. Hypomagnesemia. 4. Alcoholic liver disease. 5. Hepatosplenomegaly with early cirrhosis. 6. Mild protein-calorie malnutrition. 7. New rash, rule out allergy to antimicrobial therapy. PLAN: 1. Antimicrobials. 2. Avoid hepatotoxins. 3. Counseled regarding alcohol use. 4. IV magnesium. 5. Local skin care. 6. Reassess rash and consider adjustment in therapy accordingly. Benoit Ashford M.D. DR: DARSHAN JOB#: [id number] CC:
[2019-01-04] MEDS: Vancomycin 1.5gm Premix IVPB SCH ×3 (03:48→20:40)
[2019-01-04 04:00] VITALS: BP 123/71
[2019-01-04] MEDS: NovoLOG Insulin Flexpen SUBQ SCH ×4 (06:06→20:46)
[2019-01-04 08:00] VITALS: BP 135/76
[2019-01-04] MEDS: Aspirin EC 81mg tab ORAL SCH (08:41)
[2019-01-04] MEDS: MS Contin 15mg tab ORAL SCH ×2 (08:41→20:39)
[2019-01-04] MEDS: Heparin 5000 units/ml inj SUBQ SCH ×2 (08:49→20:50)
[2019-01-04] MEDS: Nystatin Powder 100,000 units/gm 15gm TOPIC SCH ×2 (09:00→17:18)
--- NOTE | 2019-01-04 11:17 | Infectious Diseases Prog Note ---
"Assessment/Plan Assessment/Plan antibiotics : vancomycin iv A 1. right foot MRSA cellulitis | osteomyelitis 2. diabetes mellitus 3. hypertension 4. CVA 5. cirrhosis, increased LFT P 1. continue iv vancomycin 32 more days 2. will follow up cultures Subjective Constitutional: Denies: fever, chills Respiratory: Denies: shortness of breath, dry cough Gastrointestinal/Abdominal: Denies: nausea, vomiting, diarrhea Musculoskeletal: Reports: pain - in right foot Allergies: Coded Allergies: No Known Allergies (Unverified , 12/26/18) Objective Vital Signs Last 24 Hour Vital Signs Date Time Temp Pulse Resp B/P (MAP) Pulse Ox O2 Delivery O2 Flow Rate FiO2 01/04/19 09:11 98.0 01/04/19 09:00 Room Air 01/04/19 08:00 97.2 78 20 135/76 (95) 95 01/04/19 04:00 98.0 75 20 123/71 (88) 99 01/03/19 21:00 Room Air 01/03/19 20:00 97.8 70 20 124/81 (95) 98 01/03/19 16:00 97.5 82 18 115/71 (86) 98 01/03/19 12:00 97.0 77 18 127/80 (96) 100 Height (Feet): 6 Height (Inches): 2.00 Weight (Pounds): 277 Respiratory/Chest: lungs clear Cardiovascular: normal rate, regular rhythm, no gallop/murmur Abdomen: soft, non tender Extremities: no edema, other - right foot in dressings, left arm PICC Current Medications Medications (Trade) Dose Ordered Sig/Nuzhat Route PRN Reason Start Time Stop Time Status Last Admin Dose Admin Aspirin (Ecotrin) 81 mg DAILY ORAL 12/27/18 09:00 01/26/19 08:59 01/04/19 08:41 Chlorhexidine Gluconate (Karen-Hex 2%) 1 applic DAILY@1999 TOPIC 12/31/18 20:00 01/30/19 19:59 01/03/19 20:05 Clopidogrel Bisulfate (Plavix) 75 mg DAILY ORAL 12/27/18 09:00 01/26/19 08:59 01/04/19 08:39 Dextrose (Dextrose 50%) 25 ml Q30M PRN IV Hypoglycemia 12/26/18 23:00 01/25/19 22:59 Dextrose (Dextrose 50%) 50 ml Q30M PRN IV Hypoglycemia 12/26/18 23:00 01/25/19 22:59 Diazepam (Valium) 5 mg HSPRN PRN ORAL Insomnia 01/03/19 00:00 01/10/19 00:00 01/04/19 00:39 Gabapentin (Neurontin) 100 mg THREE TIMES A DAY ORAL 12/26/18 23:00 01/25/19 22:59 01/04/19 08:39 Heparin Sodium (Porcine) (Heparin 5000 units/ml) 5,000 units EVERY 12 HOURS SUBQ 12/27/18 10:00 01/26/19 09:59 12/30/18 09:32 Insulin Aspart (NovoLOG) BEFORE MEALS AND HS SUBQ 12/27/18 06:30 01/26/19 06:29 01/04/19 06:06 Morphine Sulfate (MS Contin) 15 mg Q12HR ORAL 01/03/19 09:00 01/10/19 08:59 01/04/19 08:41 Nystatin (Nystop Powder) 1 applic BID TOPIC 12/27/18 09:00 01/26/19 08:59 01/03/19 18:15 Ondansetron HCl (Zofran) 4 mg Q6H PRN IVP Nausea & Vomiting 01/03/19 11:30 02/02/19 11:29 Vancomycin HCl (Vanco rx to dose) 1 ea DAILY PRN MISC Per rx protocol 12/26/18 23:00 01/31/19 23:00 Vancomycin HCl/ Dextrose 275 ml @ 137.5 mls/ hr Q8H IVPB 12/29/18 20:00 01/31/19 23:00 01/04/19 03:48 Kendra Locke MD Jan 04, 2019 11:17"
[2019-01-04 12:00] VITALS: BP 113/74
--- NOTE | 2019-01-04 15:19 | Surgery Progress Note ---
Surgery Progress Note Subjective Additional Comments Patient seen and examined bedside. No acute events. States he is feeling well. Ambulatory. Urinating well. Pain decreased. Keeping his legs elevated when he can. Objective Last 24 Hour Vital Signs Date Time Temp Pulse Resp B/P (MAP) Pulse Ox O2 Delivery O2 Flow Rate FiO2 01/04/19 12:00 97.9 76 20 113/74 (87) 97 01/04/19 09:11 98.0 01/04/19 09:00 Room Air 01/04/19 08:00 97.2 78 20 135/76 (95) 95 01/04/19 04:00 98.0 75 20 123/71 (88) 99 01/03/19 21:00 Room Air 01/03/19 20:00 97.8 70 20 124/81 (95) 98 01/03/19 16:00 97.5 82 18 115/71 (86) 98 I&O Intake and Output 01/03/19 01/04/19 18:59 06:59 Intake Total 275.0 ml 3395.0 ml Balance 275.0 ml 3395.0 ml Intake Oral 1920 ml IV Total 275.0 ml 275.0 ml Other 1200 ml Dressing: dry Wound: clean Cardiovascular: RSR Respiratory: clear Abdomen: soft, flat, non-tender, present bowel sounds Extremities: edema, no tenderness, no cyanosis Plan Problems: (1) Cellulitis of foot Assessment & Plan: This is a 53-year-old male with significant bilateral lower extremity venous incompetence, venous stasis ulcer, edema. Patient with acute cellulitis of the right lower extremity. Patient states that injury 3 days ago but in evaluating the extremity patient has multiple chronic ulcerations and injuries identified. Patient is aware of his of his venous stasis disease and has not received care thus far. Patient does state that when he lays flat the veins are not engorged in the in the morning after keeping his legs elevated occasionally he will no significant improvement in the edema. Patient states that he has been caring for the wound himself but has been unable to do so and given the pain discomfort along with the chest pain decided come in for evaluation. Currently no acute surgical intervention recommended. Plan for local wound care and antibiotics for cellulitis until improved. Long discussion was had with the patient in regards to his lower extremity venous incompetence and disease process. Patient is recommended to keep lower extremities elevated while in bed. Patient recommended to have venous compression stockings. Patient recommended follow-up as an outpatient for considerations of surgical intervention. For the meantime is for wound care apply Betadine to wounds foam dressing and Kerlix wrap to right lower extremity wounds. We will follow with recognitions. Thank you allowing me to participate in patient's care. MRI with Impression: Increased STIR and equivocally increased T1 signal within the fifth middle phalanx, could indicate osteomyelitis. Foci of subtle increased STIR signal without corresponding T1 abnormality within the fifth proximal and distal phalanges, the first distal phalanx, and in the fourth proximal, middle, and distal phalanges. Most likely represent reactive marrow changes, but early osteomyelitis is also possible Severe degenerative changes of the first metatarsophalangeal joint. Underlying mild marrow edema of the first metatarsal head is likely related to such Soft tissue edema, as described. Consider clinical history, likely on the basis of cellulitis but can also be vasogenic/hemodynamic in origin. No evidence of drainable abscess consistent with cellulitis no active osteo clinically doing better taking care of himself edema improved wound stable pending placement Cruzito Gary Jan 04, 2019 15:19
[2019-01-04 16:00] VITALS: BP 121/69
[2019-01-04 20:00] VITALS: BP 111/71
[2019-01-04] MEDS: Dyna-Hex 2% Top Sol 2oz TOPIC SCH (20:40)
[2019-01-05] VITALS: BP 124/74
--- NOTE | 2019-01-05 02:15 | Progress Note ---
DATE: 01/04/2019 INTERNAL MEDICINE PROGRESS NOTE SUBJECTIVE: The patient's facial rash has recovered. He has few skin pimples. He is tolerating wound care of his foot. PHYSICAL EXAMINATION: VITAL SIGNS: Stable. LUNGS: Clear. CARDIAC: Regular. ABDOMEN: Soft. No edema. SKIN: Wound site is progressing. IMPRESSION: Stable. PLAN: Needed IV antimicrobials for additional 33 days and continued wound care to right foot remains with transaminitis likely due to alcoholic liver disease with mild early cirrhotic changes and continues on glucose monitoring and insulin coverage by sliding scale. Disposition pending at a longterm facility to complete therapy at. Benoit Ashford M.D. DR: CANDI JOB#: [id number] CC:
[2019-01-05] MEDS: Vancomycin 1.5gm Premix IVPB SCH ×2 (03:43→11:51)
[2019-01-05] MEDS: NovoLOG Insulin Flexpen SUBQ SCH ×4 (03:52→20:33)
[2019-01-05 04:00] VITALS: BP 135/73
[2019-01-05 08:00] VITALS: BP 121/73
[2019-01-05] MEDS: Aspirin EC 81mg tab ORAL SCH (08:32)
[2019-01-05] MEDS: Nystatin Powder 100,000 units/gm 15gm TOPIC SCH ×2 (08:33→17:29)
[2019-01-05] MEDS: Heparin 5000 units/ml inj SUBQ SCH ×2 (08:33→20:19)
[2019-01-05] MEDS: MS Contin 15mg tab ORAL SCH (08:33)
--- NOTE | 2019-01-05 10:21 | Surgery Progress Note ---
Surgery Progress Note Subjective Symptoms: improved, tolerating diet, pain decreased Additional Comments states wounds opens intermittently causing some drainage but now dry again still needs IV Abx for duration pending placement ambulatory tolerating diet Objective Last 24 Hour Vital Signs Date Time Temp Pulse Resp B/P (MAP) Pulse Ox O2 Delivery O2 Flow Rate FiO2 01/05/19 08:00 97.9 80 20 121/73 (89) 97 01/05/19 04:00 97.7 81 18 135/73 (93) 98 01/05/19 00:00 97.4 79 18 124/74 (91) 95 01/04/19 21:00 Room Air 01/04/19 20:00 97.8 84 18 111/71 (84) 98 01/04/19 16:00 97.7 82 20 121/69 (86) 98 01/04/19 12:00 97.9 76 20 113/74 (87) 97 I&O Intake and Output 01/04/19 01/05/19 19:00 07:00 Intake Total 1475.0 ml 550.0 ml Balance 1475.0 ml 550.0 ml Intake Oral 1200 ml IV Total 275.0 ml 550.0 ml # Voids 2 Dressing: dry Wound: clean Cardiovascular: RSR Respiratory: clear Abdomen: soft, present bowel sounds Extremities: edema, no tenderness, no cyanosis Plan Problems: (1) Cellulitis of foot Assessment & Plan: This is a 53-year-old male with significant bilateral lower extremity venous incompetence, venous stasis ulcer, edema. Patient with acute cellulitis of the right lower extremity. Patient states that injury 3 days ago but in evaluating the extremity patient has multiple chronic ulcerations and injuries identified. Patient is aware of his of his venous stasis disease and has not received care thus far. Patient does state that when he lays flat the veins are not engorged in the in the morning after keeping his legs elevated occasionally he will no significant improvement in the edema. Patient states that he has been caring for the wound himself but has been unable to do so and given the pain discomfort along with the chest pain decided come in for evaluation. Currently no acute surgical intervention recommended. Plan for local wound care and antibiotics for cellulitis until improved. Long discussion was had with the patient in regards to his lower extremity venous incompetence and disease process. Patient is recommended to keep lower extremities elevated while in bed. Patient recommended to have venous compression stockings. Patient recommended follow-up as an outpatient for considerations of surgical intervention. For the meantime is for wound care apply Betadine to wounds foam dressing and Kerlix wrap to right lower extremity wounds. We will follow with recognitions. Thank you allowing me to participate in patient's care. MRI with Impression: Increased STIR and equivocally increased T1 signal within the fifth middle phalanx, could indicate osteomyelitis. Foci of subtle increased STIR signal without corresponding T1 abnormality within the fifth proximal and distal phalanges, the first distal phalanx, and in the fourth proximal, middle, and distal phalanges. Most likely represent reactive marrow changes, but early osteomyelitis is also possible Severe degenerative changes of the first metatarsophalangeal joint. Underlying mild marrow edema of the first metatarsal head is likely related to such Soft tissue edema, as described. Consider clinical history, likely on the basis of cellulitis but can also be vasogenic/hemodynamic in origin. No evidence of drainable abscess consistent with cellulitis no active osteo clinically doing better taking care of himself edema improved wound stable pending placement Cruzito Gary Jan 05, 2019 10:21
[2019-01-05 11:45] VITALS: BP 125/71
[2019-01-05 16:00] VITALS: BP 119/71
[2019-01-05] MEDS: Lactobacillus-GG tablet ORAL SCH (17:29)
[2019-01-05] MEDS: Vancomycin 1.25 GM in NS 275 ML IVPB SCH ×2 (17:35→23:04)
[2019-01-05] MEDS: HYDROcodone/Acetamin 5/325 tab ORAL PRN (17:36)
[2019-01-05] MEDS: Dyna-Hex 2% Top Sol 2oz TOPIC SCH (20:31)
[2019-01-05 20:59] VITALS: BP 113/63
[2019-01-06] MEDS: HYDROcodone/Acetamin 5/325 tab ORAL PRN ×4 (01:04→18:43)
--- NOTE | 2019-01-06 02:30 | Progress Note ---
DATE: 01/05/2019 CARDIOLOGY PROGRESS NOTE Pain control is suboptimal. The patient is being transitioned to [place]. He continues with IV antimicrobials. His vitals are stable. Exam is without change. Wound care per surgeon is improving. He is continuing his IV antibiotics for an additional 30 days for management of his osteomyelitis of the right foot. In addition, he continues on insulin coverage antihypertensives and electrolyte replacement as needed. Intermittent evaluation of liver function studies. We will follow. He has been counseled against use of alcohol as an outpatient. Benoit Ashford M.D. DR: CANDI JOB#: [id number] CC:
[2019-01-06 04:31] VITALS: BP 130/72
[2019-01-06] MEDS: Vancomycin 1.25 GM in NS 275 ML IVPB SCH ×4 (05:02→23:01)
[2019-01-06] MEDS: NovoLOG Insulin Flexpen SUBQ SCH ×4 (06:05→21:16)
[2019-01-06 07:47] VITALS: BP 104/70
[2019-01-06] MEDS: Aspirin EC 81mg tab ORAL SCH (08:06)
[2019-01-06] MEDS: Lactobacillus-GG tablet ORAL SCH ×2 (08:06→17:10)
[2019-01-06] MEDS: Heparin 5000 units/ml inj SUBQ SCH ×2 (08:07→21:00)
[2019-01-06] MEDS: Nystatin Powder 100,000 units/gm 15gm TOPIC SCH ×2 (08:07→17:10)
--- NOTE | 2019-01-06 10:12 | Infectious Diseases Prog Note ---
"Assessment/Plan Assessment/Plan antibiotics : vancomycin iv A 1. right foot MRSA cellulitis | osteomyelitis 2. diabetes mellitus 3. hypertension 4. CVA 5. cirrhosis, increased LFT P 1. continue iv vancomycin 30 more days 2. cbc, bmp, vancomycin level q weekly 3. will follow up cultures Subjective ROS Limited/Unobtainable: Yes Allergies: Coded Allergies: No Known Allergies (Unverified , 12/26/18) Objective Vital Signs Last 24 Hour Vital Signs Date Time Temp Pulse Resp B/P (MAP) Pulse Ox O2 Delivery O2 Flow Rate FiO2 01/06/19 09:00 Room Air 01/06/19 07:47 97.7 75 16 104/70 (81) 96 01/06/19 04:31 97.8 73 20 130/72 (91) 96 01/06/19 01:34 97.6 01/05/19 21:09 Room Air 01/05/19 20:59 97.6 83 20 113/63 (80) 96 01/05/19 16:00 97.7 74 20 119/71 (87) 95 01/05/19 11:45 97.0 73 20 125/71 (89) 96 Height (Feet): 6 Height (Inches): 2.00 Weight (Pounds): 273 Respiratory/Chest: lungs clear Cardiovascular: normal rate, regular rhythm, no gallop/murmur Abdomen: soft, non tender Extremities: no edema, other - right foot in dressings, PICC Laboratory Tests Test 01/05/19 10:53 Vancomycin Level Trough 13.1 ug/mL (5.0-12.0) H Current Medications Medications (Trade) Dose Ordered Sig/Nuzhat Route PRN Reason Start Time Stop Time Status Last Admin Dose Admin Acetaminophen/ Hydrocodone Bitart ([place] 5/325) 1 tab Q4H PRN ORAL Moderate Pain (Pain Scale 4-6) 01/05/19 14:04 01/12/19 14:03 01/06/19 06:01 Aspirin (Ecotrin) 81 mg DAILY ORAL 12/27/18 09:00 01/26/19 08:59 01/06/19 08:06 Chlorhexidine Gluconate (Karen-Hex 2%) 1 applic DAILY@1999 TOPIC 12/31/18 20:00 01/30/19 19:59 01/05/19 20:31 Clopidogrel Bisulfate (Plavix) 75 mg DAILY ORAL 12/27/18 09:00 01/26/19 08:59 01/06/19 08:06 Dextrose (Dextrose 50%) 25 ml Q30M PRN IV Hypoglycemia 12/26/18 23:00 01/25/19 22:59 Dextrose (Dextrose 50%) 50 ml Q30M PRN IV Hypoglycemia 12/26/18 23:00 01/25/19 22:59 Diazepam (Valium) 5 mg HSPRN PRN ORAL Insomnia 01/03/19 00:00 01/10/19 00:00 01/06/19 02:20 Gabapentin (Neurontin) 100 mg THREE TIMES A DAY ORAL 12/26/18 23:00 01/25/19 22:59 01/06/19 08:06 Heparin Sodium (Porcine) (Heparin 5000 units/ml) 5,000 units EVERY 12 HOURS SUBQ 12/27/18 10:00 01/26/19 09:59 12/30/18 09:32 Insulin Aspart (NovoLOG) BEFORE MEALS AND HS SUBQ 12/27/18 06:30 01/26/19 06:29 01/06/19 06:05 Lactobacillus Acidophilus (Culturelle) 1 tab TWICE A DAY ORAL 01/05/19 18:00 02/04/19 17:59 01/06/19 08:06 Nystatin (Nystop Powder) 1 applic BID TOPIC 12/27/18 09:00 01/26/19 08:59 01/06/19 08:07 Ondansetron HCl (Zofran) 4 mg Q6H PRN IVP Nausea & Vomiting 01/03/19 11:30 02/02/19 11:29 Vancomycin HCl (Vanco rx to dose) 1 ea DAILY PRN MISC Per rx protocol 12/26/18 23:00 01/31/19 23:00 Vancomycin HCl 1.25 gm/Sodium Chloride 275 ml @ 183.33 mls/ hr Q6HR IVPB 01/05/19 18:00 01/10/19 17:59 01/06/19 05:02 Kendra Locke MD Jan 06, 2019 10:12"
[2019-01-06 12:00] VITALS: BP 132/85
--- NOTE | 2019-01-06 12:09 | Surgery Progress Note ---
Surgery Progress Note Subjective Additional Comments no acute events doing well comfortable ambulatory Objective Last 24 Hour Vital Signs Date Time Temp Pulse Resp B/P (MAP) Pulse Ox O2 Delivery O2 Flow Rate FiO2 01/06/19 09:00 Room Air 01/06/19 07:47 97.7 75 16 104/70 (81) 96 01/06/19 04:31 97.8 73 20 130/72 (91) 96 01/06/19 01:34 97.6 01/05/19 21:09 Room Air 01/05/19 20:59 97.6 83 20 113/63 (80) 96 01/05/19 16:00 97.7 74 20 119/71 (87) 95 I&O Intake and Output 01/05/19 01/06/19 19:00 07:00 Intake Total 600 ml 515.00 ml Balance 600 ml 515.00 ml Intake Oral 600 ml 240 ml IV Total 275.00 ml # Voids 5 3 # Bowel Movements 1 Dressing: saturated Wound: clean Cardiovascular: RSR Respiratory: clear Abdomen: soft, non-tender, present bowel sounds Extremities: edema, no cyanosis Plan Problems: (1) Cellulitis of foot Assessment & Plan: This is a 53-year-old male with significant bilateral lower extremity venous incompetence, venous stasis ulcer, edema. Patient with acute cellulitis of the right lower extremity. Patient states that injury 3 days ago but in evaluating the extremity patient has multiple chronic ulcerations and injuries identified. Patient is aware of his of his venous stasis disease and has not received care thus far. Patient does state that when he lays flat the veins are not engorged in the in the morning after keeping his legs elevated occasionally he will no significant improvement in the edema. Patient states that he has been caring for the wound himself but has been unable to do so and given the pain discomfort along with the chest pain decided come in for evaluation. Currently no acute surgical intervention recommended. Plan for local wound care and antibiotics for cellulitis until improved. Long discussion was had with the patient in regards to his lower extremity venous incompetence and disease process. Patient is recommended to keep lower extremities elevated while in bed. Patient recommended to have venous compression stockings. Patient recommended follow-up as an outpatient for considerations of surgical intervention. For the meantime is for wound care apply Betadine to wounds foam dressing and Kerlix wrap to right lower extremity wounds. We will follow with recs. Thank you allowing me to participate in patient's care. MRI with Impression: Increased STIR and equivocally increased T1 signal within the fifth middle phalanx, could indicate osteomyelitis. Foci of subtle increased STIR signal without corresponding T1 abnormality within the fifth proximal and distal phalanges, the first distal phalanx, and in the fourth proximal, middle, and distal phalanges. Most likely represent reactive marrow changes, but early osteomyelitis is also possible Severe degenerative changes of the first metatarsophalangeal joint. Underlying mild marrow edema of the first metatarsal head is likely related to such Soft tissue edema, as described. Consider clinical history, likely on the basis of cellulitis but can also be vasogenic/hemodynamic in origin. No evidence of drainable abscess consistent with cellulitis no active osteo clinically doing better taking care of himself edema improved wound stable pending placement \For the meantime is for wound care apply Betadine and alginate to wounds foam dressing and Kerlix wrap to right lower extremity wounds. Cruzito Gary Jan 06, 2019 12:09
[2019-01-06 15:51] VITALS: BP 124/74
[2019-01-06 20:00] VITALS: BP 136/86
[2019-01-06] MEDS: Dyna-Hex 2% Top Sol 2oz TOPIC SCH (20:00)
[2019-01-07] VITALS: BP 115/58
--- NOTE | 2019-01-07 | Progress Note ---
DATE: 01/06/2019 INTERNAL MEDICINE PROGRESS NOTE SUBJECTIVE: No new complaints. Ongoing wound care of the right leg as well as antimicrobials. No new labs. Exam unchanged. Vitals are stable. Awaiting disposition. Needs a prolonged course of IV antimicrobials and wound care for osteomyelitis in the setting of diabetes mellitus. Benoit Ashford M.D. DR: DARSHAN JOB#: [id number] CC:
[2019-01-07] MEDS: HYDROcodone/Acetamin 5/325 tab ORAL PRN ×4 (00:58→18:40)
[2019-01-07 04:00] VITALS: BP 108/62
[2019-01-07] MEDS: Vancomycin 1.25 GM in NS 275 ML IVPB SCH ×3 (05:02→17:32)
[2019-01-07 06:35] LABS: HEMATOCRIT 38.3 % (42.0-52.0); HEMOGLOBIN 12.7 G/DL (14.2-18.0); MEAN CORPUSCULAR VOLUME 97 FL (80-99); PLATELET COUNT 91 K/UL (150-450); RED BLOOD COUNT 3.93 M/UL (4.70-6.10); RED CELL DISTRIBUTION WIDTH 12.5 % (11.6-14.8); WHITE BLOOD COUNT 4.2 K/UL (4.8-10.8)
[2019-01-07] MEDS: NovoLOG Insulin Flexpen SUBQ SCH ×4 (06:40→21:32)
[2019-01-07 06:55] LABS: ALANINE AMINOTRANSFERASE 151 U/L (12-78); ALBUMIN 2.9 G/DL (3.4-5.0); ALBUMIN/GLOBULIN RATIO 0.9 (1.0-2.7); ALKALINE PHOSPHATASE 61 U/L (46-116); ANION GAP 6 mmol/L (5-15); ASPARTATE AMINO TRANSFERASE 71 U/L (15-37); BILIRUBIN,TOTAL 0.5 MG/DL (0.2-1.0); BLOOD UREA NITROGEN 23 mg/dL (7-18); CALCIUM 8.7 MG/DL (8.5-10.1); CARBON DIOXIDE 28 MMOL/L (21-32); CHLORIDE 106 MMOL/L (98-107); CREATININE 0.7 MG/DL (0.55-1.30); POTASSIUM 3.9 MMOL/L (3.5-5.1); SODIUM 140 MMOL/L (136-145)
[2019-01-07 08:00] VITALS: BP 130/80
[2019-01-07] MEDS: Heparin 5000 units/ml inj SUBQ SCH ×2 (09:00→21:00)
[2019-01-07] MEDS: Lactobacillus-GG tablet ORAL SCH ×2 (09:14→17:35)
[2019-01-07] MEDS: Aspirin EC 81mg tab ORAL SCH (09:15)
[2019-01-07] MEDS: Nystatin Powder 100,000 units/gm 15gm TOPIC SCH ×2 (09:27→17:39)
--- NOTE | 2019-01-07 10:15 | Infectious Diseases Prog Note ---
"Assessment/Plan Assessment/Plan A 1. right foot MRSA cellulitis | osteomyelitis 2. diabetes mellitus 3. hypertension 4. CVA 5.chronic liver disease, likely cirrhosis P 1. continue iv vancomycin 2. will follow up cultures Subjective ROS Limited/Unobtainable: Yes Respiratory: Reports: no symptoms Gastrointestinal/Abdominal: Reports: no symptoms Skin: Reports: rash Allergies: Coded Allergies: No Known Allergies (Unverified , 12/26/18) Objective Vital Signs Last 24 Hour Vital Signs Date Time Temp Pulse Resp B/P (MAP) Pulse Ox O2 Delivery O2 Flow Rate FiO2 01/07/19 04:00 98.3 67 18 108/62 (77) 96 01/07/19 00:00 98.4 69 18 115/58 (77) 97 01/06/19 21:00 Room Air 01/06/19 20:00 98.4 83 18 136/86 (103) 97 01/06/19 19:13 99.0 01/06/19 15:51 99.0 80 16 124/74 (91) 96 01/06/19 12:00 98.6 77 16 132/85 (101) 96 Height (Feet): 6 Height (Inches): 2.00 Weight (Pounds): 273 General Appearance: no acute distress HEENT: mucous membranes moist Respiratory/Chest: lungs clear Cardiovascular: normal rate, other - left arm PICC line Abdomen: soft, non tender Extremities: other - legsvaricose veins Skin: rash, other - facial, healing wounds on right foot Neurologic/Psychiatric: alert, oriented x 3, responsive Laboratory Tests Test 01/06/19 17:13 01/07/19 04:25 Vancomycin Level Trough 14.0 ug/mL (5.0-12.0) H White Blood Count 4.2 K/UL (4.8-10.8) L Red Blood Count 3.93 M/UL (4.70-6.10) L Hemoglobin 12.7 G/DL (14.2-18.0) L Hematocrit 38.3 % (42.0-52.0) L Mean Corpuscular Volume 97 FL (80-99) Mean Corpuscular Hemoglobin 32.4 PG (27.0-31.0) H Mean Corpuscular Hemoglobin Concent 33.2 G/DL (32.0-36.0) Red Cell Distribution Width 12.5 % (11.6-14.8) Platelet Count 91 K/UL (150-450) L Mean Platelet Volume 6.0 FL (6.5-10.1) L Neutrophils (%) (Auto) % (45.0-75.0) Lymphocytes (%) (Auto) % (20.0-45.0) Monocytes (%) (Auto) % (1.0-10.0) Eosinophils (%) (Auto) % (0.0-3.0) Basophils (%) (Auto) % (0.0-2.0) Neutrophils % (Manual) Pending Lymphocytes % (Manual) Pending Platelet Estimate Pending Platelet Morphology Pending Sodium Level 140 MMOL/L (136-145) Potassium Level 3.9 MMOL/L (3.5-5.1) Chloride Level 106 MMOL/L (98-107) Carbon Dioxide Level 28 MMOL/L (21-32) Anion Gap 6 mmol/L (5-15) Blood Urea Nitrogen 23 mg/dL (7-18) H Creatinine 0.7 MG/DL (0.55-1.30) Estimat Glomerular Filtration Rate > 60 mL/min (>60) Glucose Level 241 MG/DL (74-106) H Calcium Level 8.7 MG/DL (8.5-10.1) Magnesium Level 1.6 MG/DL (1.8-2.4) L Total Bilirubin 0.5 MG/DL (0.2-1.0) Aspartate Amino Transf (AST/SGOT) 71 U/L (15-37) H Alanine Aminotransferase (ALT/SGPT) 151 U/L (12-78) H Alkaline Phosphatase 61 U/L (46-116) Total Protein 6.2 G/DL (6.4-8.2) L Albumin 2.9 G/DL (3.4-5.0) L Globulin 3.3 g/dL Albumin/Globulin Ratio 0.9 (1.0-2.7) L Current Medications Medications (Trade) Dose Ordered Sig/Nuzhat Route PRN Reason Start Time Stop Time Status Last Admin Dose Admin Acetaminophen/ Hydrocodone Bitart ([place] 5/325) 1 tab Q4H PRN ORAL Moderate Pain (Pain Scale 4-6) 01/05/19 14:04 01/12/19 14:03 01/07/19 06:30 Aspirin (Ecotrin) 81 mg DAILY ORAL 12/27/18 09:00 01/26/19 08:59 01/07/19 09:15 Chlorhexidine Gluconate (Karen-Hex 2%) 1 applic DAILY@2000 TOPIC 12/31/18 20:00 01/30/19 19:59 01/05/19 20:31 Clopidogrel Bisulfate (Plavix) 75 mg DAILY ORAL 12/27/18 09:00 01/26/19 08:59 01/07/19 09:14 Dextrose (Dextrose 50%) 25 ml Q30M PRN IV Hypoglycemia 12/26/18 23:00 01/25/19 22:59 Dextrose (Dextrose 50%) 50 ml Q30M PRN IV Hypoglycemia 12/26/18 23:00 01/25/19 22:59 Diazepam (Valium) 5 mg HSPRN PRN ORAL Insomnia 01/03/19 00:00 01/10/19 00:00 01/06/19 02:20 Gabapentin (Neurontin) 100 mg THREE TIMES A DAY ORAL 12/26/18 23:00 01/25/19 22:59 01/07/19 09:14 Heparin Sodium (Porcine) (Heparin 5000 units/ml) 5,000 units EVERY 12 HOURS SUBQ 12/27/18 10:00 01/26/19 09:59 12/30/18 09:32 Insulin Aspart (NovoLOG) BEFORE MEALS AND HS SUBQ 12/27/18 06:30 01/26/19 06:29 01/07/19 06:40 Lactobacillus Acidophilus (Culturelle) 1 tab TWICE A DAY ORAL 01/05/19 18:00 02/04/19 17:59 01/07/19 09:14 Nystatin (Nystop Powder) 1 applic BID TOPIC 12/27/18 09:00 01/26/19 08:59 01/07/19 09:27 Ondansetron HCl (Zofran) 4 mg Q6H PRN IVP Nausea & Vomiting 01/03/19 11:30 02/02/19 11:29 Vancomycin HCl (Vanco rx to dose) 1 ea DAILY PRN MISC Per rx protocol 12/26/18 23:00 01/31/19 23:00 Vancomycin HCl 1.25 gm/Sodium Chloride 275 ml @ 183.33 mls/ hr Q6HR IVPB 01/05/19 18:00 01/10/19 17:59 01/07/19 05:02 Judd Alvarado MD Jan 07, 2019 10:15"
[2019-01-07 12:00] VITALS: BP 123/80
[2019-01-07 16:00] VITALS: BP 130/78
--- NOTE | 2019-01-07 16:07 | Surgery Progress Note ---
Surgery Progress Note Subjective Additional Comments no acute events electrolytes requiring replacement no n/v/f/c ambulatory Objective Last 24 Hour Vital Signs Date Time Temp Pulse Resp B/P (MAP) Pulse Ox O2 Delivery O2 Flow Rate FiO2 01/07/19 12:00 98.8 72 18 123/80 (94) 99 01/07/19 09:00 Room Air 01/07/19 08:00 98.1 76 18 130/80 (97) 100 01/07/19 04:00 98.3 67 18 108/62 (77) 96 01/07/19 00:00 98.4 69 18 115/58 (77) 97 01/06/19 21:00 Room Air 01/06/19 20:00 98.4 83 18 136/86 (103) 97 01/06/19 19:13 99.0 I&O Intake and Output 01/06/19 01/07/19 19:00 07:00 Intake Total 3000 ml Balance 3000 ml Intake Oral 3000 ml # Voids 6 3 # Bowel Movements 2 Dressing: dry Wound: clean Cardiovascular: RSR Respiratory: clear Abdomen: soft, flat, non-tender, present bowel sounds Extremities: edema, no cyanosis Laboratory Tests Test 01/06/19 17:13 01/07/19 04:25 Vancomycin Level Trough 14.0 ug/mL (5.0-12.0) H White Blood Count 4.2 K/UL (4.8-10.8) L Red Blood Count 3.93 M/UL (4.70-6.10) L Hemoglobin 12.7 G/DL (14.2-18.0) L Hematocrit 38.3 % (42.0-52.0) L Mean Corpuscular Volume 97 FL (80-99) Mean Corpuscular Hemoglobin 32.4 PG (27.0-31.0) H Mean Corpuscular Hemoglobin Concent 33.2 G/DL (32.0-36.0) Red Cell Distribution Width 12.5 % (11.6-14.8) Platelet Count 91 K/UL (150-450) L Mean Platelet Volume 6.0 FL (6.5-10.1) L Neutrophils (%) (Auto) % (45.0-75.0) Lymphocytes (%) (Auto) % (20.0-45.0) Monocytes (%) (Auto) % (1.0-10.0) Eosinophils (%) (Auto) % (0.0-3.0) Basophils (%) (Auto) % (0.0-2.0) Differential Total Cells Counted 100 Neutrophils % (Manual) 58 % (45-75) Lymphocytes % (Manual) 29 % (20-45) Monocytes % (Manual) 7 % (1-10) Eosinophils % (Manual) 5 % (0-3) H Basophils % (Manual) 1 % (0-2) Band Neutrophils 0 % (0-8) Platelet Estimate Decreased L Platelet Morphology Normal Anisocytosis 1+ Sodium Level 140 MMOL/L (136-145) Potassium Level 3.9 MMOL/L (3.5-5.1) Chloride Level 106 MMOL/L (98-107) Carbon Dioxide Level 28 MMOL/L (21-32) Anion Gap 6 mmol/L (5-15) Blood Urea Nitrogen 23 mg/dL (7-18) H Creatinine 0.7 MG/DL (0.55-1.30) Estimat Glomerular Filtration Rate > 60 mL/min (>60) Glucose Level 241 MG/DL (74-106) H Calcium Level 8.7 MG/DL (8.5-10.1) Magnesium Level 1.6 MG/DL (1.8-2.4) L Total Bilirubin 0.5 MG/DL (0.2-1.0) Aspartate Amino Transf (AST/SGOT) 71 U/L (15-37) H Alanine Aminotransferase (ALT/SGPT) 151 U/L (12-78) H Alkaline Phosphatase 61 U/L (46-116) Total Protein 6.2 G/DL (6.4-8.2) L Albumin 2.9 G/DL (3.4-5.0) L Globulin 3.3 g/dL Albumin/Globulin Ratio 0.9 (1.0-2.7) L Plan Problems: (1) Cellulitis of foot Assessment & Plan: This is a 53-year-old male with significant bilateral lower extremity venous incompetence, venous stasis ulcer, edema. Patient with acute cellulitis of the right lower extremity. Patient states that injury 3 days ago but in evaluating the extremity patient has multiple chronic ulcerations and injuries identified. Patient is aware of his of his venous stasis disease and has not received care thus far. Patient does state that when he lays flat the veins are not engorged in the in the morning after keeping his legs elevated occasionally he will no significant improvement in the edema. Patient states that he has been caring for the wound himself but has been unable to do so and given the pain discomfort along with the chest pain decided come in for evaluation. Currently no acute surgical intervention recommended. Plan for local wound care and antibiotics for cellulitis until improved. Long discussion was had with the patient in regards to his lower extremity venous incompetence and disease process. Patient is recommended to keep lower extremities elevated while in bed. Patient recommended to have venous compression stockings. Patient recommended follow-up as an outpatient for considerations of surgical intervention. For the meantime is for wound care apply Betadine to wounds foam dressing and Kerlix wrap to right lower extremity wounds. We will follow with recs. Thank you allowing me to participate in patient's care. MRI with Impression: Increased STIR and equivocally increased T1 signal within the fifth middle phalanx, could indicate osteomyelitis. Foci of subtle increased STIR signal without corresponding T1 abnormality within the fifth proximal and distal phalanges, the first distal phalanx, and in the fourth proximal, middle, and distal phalanges. Most likely represent reactive marrow changes, but early osteomyelitis is also possible Severe degenerative changes of the first metatarsophalangeal joint. Underlying mild marrow edema of the first metatarsal head is likely related to such Soft tissue edema, as described. Consider clinical history, likely on the basis of cellulitis but can also be vasogenic/hemodynamic in origin. No evidence of drainable abscess consistent with cellulitis no active osteo clinically doing better taking care of himself edema improved wound stable pending placement \For the meantime is for wound care apply Betadine and alginate to wounds foam dressing and Kerlix wrap to right lower extremity wounds. Cruzito Gary Jan 07, 2019 16:07
[2019-01-07] MEDS ORDERED: GABAPENTIN100 MG ORAL (17:15)
[2019-01-07] MEDS ORDERED: ASPIRIN81 MG ORAL (17:15)
[2019-01-07] MEDS ORDERED: NORCO 5-325 TA1 EACH ORAL (17:15)
[2019-01-07] MEDS ORDERED: HEPARIN SO5000 UNIT2 SUBQ (17:16)
[2019-01-07] MEDS ORDERED: NOVOLOG100 UNIT/4 SQ (17:16)
[2019-01-07] MEDS ORDERED: ZOFRAN 4 MG4 MG/2 ML IV (17:17)
[2019-01-07] MEDS ORDERED: CULTURELLE1 EACH ORAL (17:17)
[2019-01-07] MEDS ORDERED: NYSTATIN15 GM TOPIC (17:17)
[2019-01-07] MEDS ORDERED: VALIUM5 MG ORAL (17:19)
[2019-01-07] MEDS ORDERED: VANCOMYCIN IV (17:19)
[2019-01-07] MEDS: Dyna-Hex 2% Top Sol 2oz TOPIC SCH (19:56)
[2019-01-07 20:00] VITALS: BP 122/79
--- NOTE | 2019-01-08 14:10 | Discharge Summary ---
Discharge Summary Discharge Summary _ DATE OF ADMISSION: 12/26/2018 DATE OF DISCHARGE: 01/27/2019 DISCHARGED BY: REASON FOR ADMISSION: 53 years old male with past medical history of type 2 diabetes mellitus, hypertension, coronary artery disease with history of stent, cerebrovascular disease with history of CVA, peripheral neuropathy, presented to emergency department complaining of chest pain. He also reported that he had a leg rash and swelling. He also reported hitting his head. He was at the stadium training, and when leaving felt hot and fell hitting his head. He did not remember if he lost consciousness. He did not give this history prior in the emergency department , but gave it to the attending physician . Patient was hospitalized about a week ago and had bruising on his abdomen due to subcutaneous heparin . At that time he had chest pain and ultimately had cardiac catheterization , which revealed no blockages and showed patency of his old stent. The patient has had vein stripping and stated that his legs were chronically swollen and painful, but redness started about 2 days ago. Patient also reported injuring his toe on the right food which resulted in open wound. Upon evaluation laboratory work-up revealed no leukocytosis ,hemoglobin 12.7. Sodium 128. BUN 8, creatinine 0.7. Glucose 188. Lactic acid 1.8. AST 98 ALT in 124. Troponin negative. Albumin 3.7. Chest x-ray revealed patchy mild bilateral lower lung opacity possibly low lung volumes well versus multifocal pneumonia or noncardiogenic pulmonary edema. Recommended PA and lateral chest x-ray. No respiratory complaints. CT of the abdomen and pelvis demonstrated no clear acute abnormality. Large colonic stool burden, which could be incidental or could represent a cause of abdominal pain. Hepatic findings such as chronic liver disease with portal vein enlargement and splenomegaly as well as a splenorenal shunt , likely representing chronic liver disease or fibrosis. Partially imaged gynecomastia, likely secondary to chronic liver disease or numerous other etiologies. Venous duplex bilateral lower extremity revealed no evidence of acute DVT. X-ray of the right foot revealed no acute osseous abnormality. Forefoot soft tissue edema. Possible Achilles tendon injury or disruption. Multifocal MTP osteoarthritis. Urine toxicology screen was positive for benzodiazepine and marijuana. Serum alcohol level was 269 Patient subsequently admitted for further management. CONSULTANTS: ID specialist Dr. Locke surgery Dr. Gary [facility] COURSE: Patient admitted and started on empiric antibiotics and intravenous saline hydration. CT of the head revealed no acute traumatic injury. No evidence of intracranial bleeding. Patient started on empiric antibiotic. ID specialist followed. Pain management addressed as needed. Blood sugar was managed with sliding scale of insulin. Hemoglobin A1c 5.8 at goal. Antiplatelet therapy was resumed after negative CAT scan results. Symptom guided management was continued. DVT prophylaxis provided. Antiplatelet therapy with aspirin and Plavix continued. MRI of the right food revealed findings, suspicious for of osteomyelitis. Blood cultures were negative. Wound culture revealed MRSA. PICC line was placed to the left upper extremity for long-term antibiotics. According to ID specialist , patient will need total of 6 weeks of antibiotics. Lactobacillus provided. Wound care for the right food provided as per surgeon recommendation. Abdominal ultrasound demonstrated slight left hepatic lobe surface nodularity , possibly indicative of early cirrhotic changes. Splenomegaly. No gallstones or dilated bile. LFT were trended: AST from initial 98 down to 71 and ALT from 124 up to 151. HIV test was nonreactive. Renal parameters and electrolytes were closely monitored. Electrolytes corrected as needed. Magnesium replaced. Hyponatremia resolved, prior to discharge sodium 140 from initial 128. Nephrotoxins were avoided. Patient clinically stabilized . [facility]acement at the retirement facility was found and secured. Patient was discharged to retirement facility for IV antibiotic to complete the course FINAL DIAGNOSES: Right foot cellulitis with MRSA Right foot osteomyelitis Alcoholic liver disease Hyponatremia and hypovolemia Blunt head trauma History of coronary artery disease Type 2 diabetes mellitus History of cerebrovascular accident Hypomagnesemia Chronic liver disease , likely cirrhosis DISCHARGE MEDICATIONS: See Medication Reconciliation list. DISCHARGE INSTRUCTIONS: Patient was discharged to the retirement facility for IV antibiotics. Follow up with medical doctor at the facility. I have been assigned to dictate discharge summary for this account. I was not involved in the patient's management. Giselle Sanchez NP Jan 08, 2019 14:09
== END 2019-01-07 23:15 | DRG 383 ==
LOC: EDBD 14:21 → EMR 14:50 → 4E 16:35 → EDBEDREQSVC 17:22 → EDBEDREQ 17:27
PROC: 02HV33Z Insertion of Infusion Device into Superior Vena Cava, Percutaneous Approach (ICD-10-PCS; principal; 2018-12-31)
PROC: B518ZZA Fluoroscopy of Superior Vena Cava, Guidance (ICD-10-PCS; principal; 2018-12-31)
DX: L03.115 Cellulitis of right lower limb (principal); E11.621 Type 2 diabetes mellitus with foot ulcer; B95.62 Methicillin resistant Staphylococcus aureus infection as the cause of diseases classified elsewhere; I10 Essential (primary) hypertension; Z86.73 Personal history of transient ischemic attack (TIA), and cerebral infarction without residual deficits; I87.8 Other specified disorders of veins; K70.30 Alcoholic cirrhosis of liver without ascites; E44.1 Mild protein-calorie malnutrition; Z68.35 Body mass index [BMI] 35.0-35.9, adult; E11.42 Type 2 diabetes mellitus with diabetic polyneuropathy; E11.69 Type 2 diabetes mellitus with other specified complication; M86.9 Osteomyelitis, unspecified; I25.10 Atherosclerotic heart disease of native coronary artery without angina pectoris; Z95.5 Presence of coronary angioplasty implant and graft; I83.015 Varicose veins of right lower extremity with ulcer other part of foot; F10.129 Alcohol abuse with intoxication, unspecified; F12.10 Cannabis abuse, uncomplicated; R21 Rash and other nonspecific skin eruption; S09.90XA Unspecified injury of head, initial encounter; W18.30XA Fall on same level, unspecified, initial encounter; Y92.9 Unspecified place or not applicable; E83.42 Hypomagnesemia; E87.1 Hypo-osmolality and hyponatremia
CPT/HCPCS: 36415; 36569; 70450; 71045; 74177; 76700; 76937; 80048; 80053; 80076; 80202; 80307; 80329; 81003; 82962; 82977; 83036; 83605; 83690; 83735; 84443; 84484; 85007; 85025; 85610; 85730; 86703; 87040; 87070; 87081; 87181; 87205; 93970; 96361; 96365; 99285; J1815